=== PATIENT | male | born 1960 | race Caucasian/White ===

== ENCOUNTER 2017-10-31 16:35 | Emergency (ER) | payer SELFPAY ==
[2017-10-31 16:47] VITALS: BP 132/72; PULSE 73; RESP 18; TEMP 98.7; O2SAT 99
--- NOTE | 2017-10-31 17:33 | C.PDOC ---
History Of Present Illness 57 y/o male presents to the ED s/p fall with right hand injury. Patient reports he injured his right finger after falling 1 week ago. Denies any pain but reliazed the finger was drooping/flexing involuntarily. When he noticed it remained flexed in the resting position he became concerned prompting his visit to the ER. He reports when he flexes the finger he feels no pain. His only concern is the deformity. Has no current medical complaints. PMD: Adonis Mir Time Seen by Provider: 10/31/17 16:50 Chief Complaint (Nursing): Finger,Hand,&Wrist History Per: Patient History/Exam Limitations: no limitations Onset/Duration Of Symptoms: Days (1 week) Current Symptoms Are (Timing): Still Present Recent travel outside of the [place]: No Past Medical History Reviewed: Historical Data, Nursing Documentation, Vital Signs Vital Signs: Last Vital Signs Temp 98.7 F 10/31/17 16:44 Pulse 73 10/31/17 16:44 Resp 18 10/31/17 16:44 BP 132/72 10/31/17 16:44 Pulse Ox 99 10/31/17 18:44 - Medical History PMH: Hypothyroidism Surgical History: No Surg Hx Family History: States: No Known Family Hx - Social History Hx Tobacco Use: No Hx Alcohol Use: Yes Hx Substance Use: No - Immunization History Hx Tetanus Toxoid Vaccination: Yes Hx Influenza Vaccination: No Hx Pneumococcal Vaccination: No Review Of Systems Except As Marked, All Systems Reviewed And Found Negative. Constitutional: Negative for: Other (unremarkable has no complaints) Musculoskeletal: Positive for: Hand Pain (deformity of the 4th finger of the right hand) Physical Exam - Physical Exam Appears: Non-toxic, No Acute Distress Skin: Normal Color, Warm, Dry Head: Atraumatic Eye(s): bilateral: Normal Inspection, PERRL, EOMI Extremity: Other (4th finger of the right hand is flexed in the resting position ) Neurological/Psych: Oriented x3 ED Course And Treatment O2 Sat by Pulse Oximetry: 99 (RA) Pulse Ox Interpretation: Normal Medical Decision Making Medical Decision Making: Time: 16:44 Plan: Finger deformity Plan: * Right hand X-ray Splinted patients finger in a dorsal splint to keep finger extended and referred to a hand specialist. Scribe Attestation: Documented by Lebron Oliveira acting as a scribe Baron Kaur MD. MD Jarvis Attestation: All medical record entries made by the Scribe were at my direction and personally dictated by me. I have reviewed the chart and agree that the record accurately reflects my personal performance of the history, physical exam, medical decision making, and the department course for this patient. I have also personally directed, reviewed, and agree with the discharge instructions and disposition. Disposition Counseled Patient/Family Regarding: Studies Performed, Diagnosis, Need For Followup - Disposition Referrals: Jaylan Low MD [Staff Provider] - Disposition: HOME/ ROUTINE Disposition Time: 17:32 Condition: STABLE Instructions: Rafi Mo (DC) Forms: [facility] (Faroese), Gen Discharge Inst [place] - Clinical Impression Clinical Impression: Flori mo Decision To Admit - . Patient Diagnosis: Mallet finger
--- NOTE | 2017-11-01 09:56 | RAD ---
PROCEDURE: Right ring finger radiographs. HISTORY: fall one week ago COMPARISON: None. TECHNIQUE: AP radiograph of the right hand, as well as spot oblique and lateral images of ring finger were obtained. FINDINGS: RIGHT RING FINGER: Normal right ring finger, without acute fracture or focal lesion. Remainder of the right hand (as seen on the AP view) grossly unremarkable. JOINTS: Normal. SOFT TISSUES: Normal. OTHER FINDINGS: None. IMPRESSION: No acute fracture or dislocation.
== END 2017-10-31 17:41 | disposition home or self-care (01) ==
LOC: C.ER 16:35
DX: M20.011 Mallet finger of right finger(s) (principal); E03.9 Hypothyroidism, unspecified

== ENCOUNTER 2018-04-24 16:44 | Inpatient (IN) | payer SELFPAY ==
--- NOTE | 2018-04-24 17:36 | C.PDOC ---
History Of Present Illness 57 y/o male presents to ED c/o right arm paresthesia and numbness to right side of face and body since 8:00pm since last night. Denies fever or any other complaints at this time. Time Seen by Provider: 04/24/18 17:24 Chief Complaint (Nursing): Weakness/Neurological Deficit History Per: Patient History/Exam Limitations: no limitations Past Medical History Reviewed: Historical Data, Nursing Documentation, Vital Signs Vital Signs: Last Vital Signs Temp 98 F 04/24/18 17:01 Pulse 67 04/24/18 17:01 Resp 18 04/24/18 17:01 BP 139/85 04/24/18 17:01 Pulse Ox 99 04/24/18 17:01 - Medical History PMH: HTN, Hypothyroidism Family History: States: Unknown Family Hx - Social History Hx Tobacco Use: No Hx Alcohol Use: Yes Hx Substance Use: No - Immunization History Hx Tetanus Toxoid Vaccination: Yes Hx Influenza Vaccination: No Hx Pneumococcal Vaccination: No Review Of Systems Except As Marked, All Systems Reviewed And Found Negative. Constitutional: Negative for: Fever, Chills Cardiovascular: Negative for: Chest Pain Respiratory: Negative for: Shortness of Breath Neurological: Positive for: Numbness (right side of face and body). Negative for: Change in Speech, Confusion, Headache, Dizziness Physical Exam - Physical Exam Appears: Non-toxic, No Acute Distress Skin: Normal Color, Warm, Dry Head: Atraumatic, Normacephalic Eye(s): bilateral: Normal Inspection Oral Mucosa: Moist Neck: Normal ROM, Supple Chest: Symmetrical Cardiovascular: Rhythm Regular, No Murmur Respiratory: Normal Breath Sounds, No Rales, No Rhonchi, No Wheezing Gastrointestinal/Abdominal: Soft, No Tenderness Extremity: Normal ROM, No Pedal Edema, Capillary Refill (less than 2 seconds), No Deformity, No Swelling Extremity: Bilateral: Atraumatic, Normal Color And Temperature Pulses: Right Radial: Normal Neurological/Psych: Oriented x3, Normal Speech, Normal Cognition, Normal Motor, Normal Sensation ED Course And Treatment - Laboratory Results Result Diagrams: 04/29/18 07:09 04/29/18 07:09 O2 Sat by Pulse Oximetry: 99 Pulse Ox Interpretation: Normal NIHSS Stroke Scale 2 - Date/Time Evaluation Performed Date Performed: 04/25/18 Time Performed: 16:00 - How Severe is the Stroke Level of Consciousness: 0=Alert LOC to Questions: 0=Both comments correct LOC to commands: 0=Obeys both correctly Best Gaze: 0=Normal Visual: 0=No visual loss Facial: 0=Normal Motor Arm - Left: 0=No drift Motor Arm - Right: 0=No drift Motor Leg - Left: 0=No drift Motor Leg - Right: 0=No drift Limb Ataxia: 0=Absent Sensory: 1=Mild to moderate loss Best Language: 0=No aphasia Dysarthia: 0=Normal articulation Extinction & Inattention (Neglect): 0=Normal, no object Score: 1 rTPA Inclusion/Exclusion - Refusal of Treatment Patient Refused Treatment: Yes - Inclusion Criteria for Altepase Patient is 18 years or Older: No The Clinical Diagnosis of Ischemic Stroke That is Causing a Potentially Disabling Neurological Deficit: No Time of Onset is Well Established to be Less Than 270 Minute Before Treatment Would Begin: No Risk/Benefit Discussed With Patient/Family Member Present: Yes Medical Decision Making Medical Decision Making: r/o cva vs cervical radiculopathy Plan: Blood work Head CT CXR EKG IV fluids labs neg. pt seen by dr bishop in [place]. ct shows ?neurocystercosis. dr bishop recommends mri and admission accpeted by hospitalist. Disposition - Disposition Disposition: HOSPITALIZED Disposition Time: 05:00 Condition: STABLE - Clinical Impression Clinical Impression: Numbness, Brain parenchymal calcification - Scribe Statement The provider has reviewed the documentation as recorded by the Scribe KP All medical record entries made by the Scribe were at my direction and personally dictated by me. I have reviewed the chart and agree that the record accurately reflects my personal performance of the history, physical exam, medical decision making, and the department course for this patient. I have also personally directed, reviewed, and agree with the discharge instructions and disposition. Decision To Admit - Pt Status Changed To: Hospital Disposition Of: Inpatient - Admit Certification Admit to Inpatient:: After my assessment, the patient will require hospitalization for at least two midnights. This is because of the severity of symptoms shown, intensity of services needed, and/or the medical risk in this patient being treated as an outpatient. - InPatient: Physician Admission Certification: I certify that this patient requires 2 or more midnights of care for the following reason:: ro cva vs infection - . Bed Request Type: Telemetry Admitting Physician: [place] Patient Diagnosis: Numbness, Brain parenchymal calcification
[2018-04-24 18:35] LABS: BASO # 0.1 K/uL (0.0-0.2); BASO % 0.7 % (0.0-2.0); EOS # 0.5 K/uL (0.0-0.7); EOS % 5.3 % (0.0-4.0); HEMOGLOBIN 14.6 g/dL (12.0-18.0); LYMPH # 2.2 K/uL (1.0-4.3); LYMPH % 23.8 % (20.0-40.0); MEAN CELL VOLUME 82.8 fL (80.0-94.0); MEAN CORPUSCULAR HEMOGLOBIN 27.9 pg (27.0-31.0); MEAN CORPUSCULAR HGB CONC 33.7 g/dL (33.0-37.0); MEAN PLATELET VOLUME 9.6 fL (7.2-11.7); MONO # 0.4 K/uL (0.0-0.8); MONO % 4.2 % (0.0-10.0); NEUT # 6.1 K/uL (1.8-7.0); NRBC % 0.1 % (0.0-2.0); RBC 5.23 Mil/uL (4.40-5.90); WHITE BLOOD COUNT 9.3 K/uL (4.8-10.8)
[2018-04-24 18:44] LABS: INR 1.1; PROTHROMBIN TIME 11.9 SECONDS (9.7-12.2)
[2018-04-24 18:48] LABS: ALB/GLOB RATIO 1.3 (1.0-2.1); ALBUMIN 4.2 g/dL (3.5-5.0); ALT/SGPT 24 U/L (21-72); AST/SGOT 27 U/L (17-59); BLOOD UREA NITROGEN 19 mg/dL (9-20); CALCIUM 9.2 mg/dl (8.6-10.4); GFR NON-AFRICAN AMERICAN > 60; HDL CHOLESTEROL 69 mg/dL (30-70)
[2018-04-24 18:59] LABS: LDL CHOLESTEROL 104 mg/dL (0-129)
--- NOTE | 2018-04-24 19:10 | CP.PCM.CON ---
History of Present Illness - History of Present Illness History of Present Illness: Neurology Consultation Note: Mr. Kemal Barragan is a 57-year-old man with a past medical history of thyroid goiter, referred to me by Dr. Sanabria, who presented to the ED after he started experiencing right face and arm numbness and some slight difference in strength that started yesterday. On exam, he did complain of subjective sensory changes, but there were no other focal neurological deficits. Non-contrast CT scan of the head was done and showed multiple calcifications in the frontal lobes, temporal lobes and occipital lobes bilaterally. Review of Systems - Constitutional Constitutional: As Per HPI - EENT Eyes: absent: As Per HPI, Blind Spots, Blurred Vision, Change in Vision, Decreased Night Vision, Diplopia, Discharge, Dry Eye, Exophthalmos, Floaters, Irritation, Itchy Eyes, Loss of Peripheral Vision, Pain, Photophobia, Requires Corrective Lenses, Sees Flashes, Spots in Vision, Tunnel Vision, Other Visual Disturbances, Loss of Vision, Other Ears: absent: As Per HPI, Decreased Hearing, Ear Discharge, Ear Pain, Tinnitus, Abnormal Hearing, Disequilibrium, Dizziness, Other Nose/Mouth/Throat: absent: As Per HPI, Epistaxis, Nasal Congestion, Nasal Discharge, Nasal Obstruction, Nasal Trauma, Nose Pain, Post Nasal Drip, Sinus Pain, Sinus Pressure, Bleeding Gums, Change in Voice, Dental Pain, Dry Mouth, Dysphagia, Halitosis, Hoarsness, Lip Swelling, Mouth Lesions, Mouth Pain, Odynophagia, Sore Throat, Throat Swelling, Tongue Swelling, Facial Pain, Neck Pain, Neck Mass, Other - Cardiovascular Cardiovascular: absent: As Per HPI, Acrocyanosis, Chest Pain, Chest Pain at Rest, Chest Pain with Activity, Claudication, Diaphoresis, Dyspnea, Dyspnea on Exertion, Edema, Irregular Heart Rhythm, Pain Radiating to Arm/Neck/Jaw, Leg Edema, Leg Ulcers, Lightheadedness, Orthopnea, Palpitations, Paroxysmal Nocturnal Dyspnea, Pedal Edema, Radiating Pain, Rapid Heart Rate, Slow Heart Rate, Syncope, Other - Respiratory Respiratory: absent: As Per HPI, Cough, Dyspnea, Hemoptysis, Dyspnea on Exertion, Wheezing, Snoring, Stridor, Pain on Inspiration, Chest Congestion, Excessive Mucous Production, Change in Mucous Color, Pain with Coughing, Other - Gastrointestinal Gastrointestinal: absent: As Per HPI, Abdominal Pain, Belching, Bloating, Change in Bowel Habits, Change in Stool Character, Coffee Ground Emesis, Constipation, Cramping, Diarrhea, Dyspepsia, Dysphagia, Early Satiety, Excessive Flatus, Fecal Incontinence, Heartburn, Hematemesis, Hematochezia, Loose Stools, Melena, Nausea, Odynophagia, Temesmus, Vomiting, Other - Genitourinary Genitourinary: absent: As Per HPI, Change in Urinary Stream, Difficulty Urinating, Dysuria, Flank Pain, Hematuria, Pyuria, Nocturia, Urinary Incontinence, Urinary Frequency, Urinary Hesitance, Urinary Urgency, Voiding Freq/Small Amts, Freq UTI, Hx Renal/Bladder Calculi, Hx /Renal Surgery, Bladder Distension, Other - Musculoskeletal Musculoskeletal: absent: As Per HPI, Abnormal Gait, Arthralgias, Atrophy, Back Pain, Deformity, Joint Swelling, Limited Range of Motion, Loss of Height, Muscle Cramps, Muscle Weakness, Myalgias, Neck Pain, Numbness, Radiating Pain into Limb, Stiffness, Tingling, Other - Integumentary Integumentary: absent: As Per HPI, Acne, Alopecia, Bleeding Lesions, Change in Hair, Change in Nails, Change in Pigmentation, Changing Lesions, Dry Skin, Erythema, Furuncle, Hirsutism, Lesions, New Lesions, Non-Healing Lesions, Photosensitivity, Pruritus, Rash, Skin Pain, Skin Ulcer, Sores, Striae, Swelling, Unusual Bruising, Wounds, Jaundice, Other - Neurological Neurological: As Per HPI - Psychiatric Psychiatric: absent: As Per HPI, Abnormal Sleep Pattern, Anhedonia, Anxiety, Auditory Hallucinations, Behavioral Changes, Change in Appetite, Change in Libido, Confusion, Depression, Difficulty Concentrating, Hallucinations, Homicidal Ideation, Hopelessness, Irritability, Memory Loss, Mood Swings, Panic Attacks, Paranoia, Suicidal Ideation, Visual Hallucinations, Tactile Hallucina tions, Other - Endocrine Endocrine: absent: As Per HPI, Change in Body Appearance, Change in Libido, Cold Intolorance, Deepening of Voice, Excessive Sweating, Fatigue, Flushing, Heat Intolorance, Increase in Ring/Shoe/Hat Size, Palpitations, Polydipsia, Polypha gabriele, Polyuria, Other - Hematologic/Lymphatic Hematologic: absent: As Per HPI, Easy Bleeding, Easy Bruising, Lymphadenopathy, Other Past Patient History - Past Social History Smoking Status: Current Some Days Smoker - CARDIAC Hx Hypertension: Yes - ENDOCRINE/METABOLIC Hx Hypothyroidism: Yes - PSYCHIATRIC Hx Substance Use: No - SURGICAL HISTORY Hx Surgeries: No - ANESTHESIA Hx Anesthesia: No Meds Allergies/Adverse Reactions: Allergies Allergy/AdvReac Type Severity Reaction Status Date / Time No Known Allergies Allergy Verified 04/24/18 17:05 - Medications Medications: Current Medications Sodium Chloride (Sodium Chloride 0.9%) 1,000 mls @ 100 mls/hr IV .Q10H KELVIN Physical Exam - Constitutional Appears: Well - Head Exam Head Exam: ATRAUMATIC, NORMAL INSPECTION, NORMOCEPHALIC - Eye Exam Eye Exam: EOMI, Normal appearance, PERRL Pupil Exam: NORMAL ACCOMODATION, PERRL - ENT Exam ENT Exam: Mucous Membranes Moist, Normal Exam - Neck Exam Neck exam: Positive for: Normal Inspection - Respiratory Exam Respiratory Exam: Clear to Auscultation Bilateral, NORMAL BREATHING PATTERN - Cardiovascular Exam Cardiovascular Exam: REGULAR RHYTHM, +S1, +S2 - GI/Abdominal Exam GI & Abdominal Exam: Normal Bowel Sounds, Soft. absent: Tenderness - Rectal Exam Rectal Exam: Deferred - Extremities Exam Extremities exam: Positive for: normal inspection - Back Exam Back exam: NORMAL INSPECTION - Neurological Exam Neurological exam: Alert, CN II-XII Intact, Normal Gait, Oriented x3, Reflexes Normal Additional comments: Slight right face and arm numbness as compared with the left. NIHSS = 1 - Psychiatric Exam Psychiatric exam: Normal Affect, Normal Mood - Skin Skin Exam: Dry, Intact, Normal Color, Warm Results - Vital Signs Recent Vital Signs: Last Vital Signs Temp 98 F 04/24/18 17:01 Pulse 67 04/24/18 17:01 Resp 18 04/24/18 17:01 BP 139/85 04/24/18 17:01 Pulse Ox 99 04/24/18 17:37 - Labs Result Diagrams: 04/24/18 18:24 04/24/18 18:24 Labs: Laboratory Results - last 24 hr 04/24/18 04/24/18 04/24/18 18:24 18:24 18:24 WBC 9.3 RBC 5.23 Hgb 14.6 Hct 43.3 MCV 82.8 MCH 27.9 MCHC 33.7 RDW 14.0 Plt Count 206 MPV 9.6 Neut % (Auto) 66.0 Lymph % (Auto) 23.8 Lassen % (Auto) 4.2 Eos % (Auto) 5.3 H Baso % (Auto) 0.7 Neut # (Auto) 6.1 Lymph # (Auto) 2.2 Lassen # (Auto) 0.4 Eos # (Auto) 0.5 Baso # (Auto) 0.1 PT 11.9 INR 1.1 APTT 30 Sodium 138 Potassium 4.3 Chloride 102 Carbon Dioxide 25 Anion Gap 15 BUN 19 Creatinine 0.8 Est GFR ( Amer) > 60 Est GFR (Non-Af Amer) > 60 Random Glucose 105 Hemoglobin A1c Calcium 9.2 Total Bilirubin 0.8 AST 27 ALT 24 Alkaline Phosphatase 63 Troponin I < 0.0120 Total Protein 7.4 Albumin 4.2 Globulin 3.3 Albumin/Globulin Ratio 1.3 Triglycerides 77 Cholesterol 188 LDL Cholesterol Direct 104 HDL Cholesterol 69 Blood Type 04/24/18 04/24/18 18:24 18:24 WBC RBC Hgb Hct MCV MCH MCHC RDW Plt Count MPV Neut % (Auto) Lymph % (Auto) Lassen % (Auto) Eos % (Auto) Baso % (Auto) Neut # (Auto) Lymph # (Auto) Lassen # (Auto) Eos # (Auto) Baso # (Auto) PT INR APTT Sodium Potassium Chloride Carbon Dioxide Anion Gap BUN Creatinine Est GFR ( Amer) Est GFR (Non-Af Amer) Random Glucose Hemoglobin A1c 5.4 Calcium Total Bilirubin AST ALT Alkaline Phosphatase Troponin I Total Protein Albumin Globulin Albumin/Globulin Ratio Triglycerides Cholesterol LDL Cholesterol Direct HDL Cholesterol Blood Type O POSITIVE Assessment & Plan - Assessment and Plan (Free Text) Assessment: The patient's symptoms of right face and arm numbness could be caused by the lesions in his brain. Considering the fact that the patient is from [place], one of the differentials is that these lesions may be neurocysticircosis. An MRI of the brain with and without contrast will be ne eded for further identification. I also recommend an EEG to ensure that the numbness is not due to focal seizures. This does not appear to be consistent with a stroke, but the MRI will help to rule that out. Aspirin 81 mg now is recommended. Thank you for this consultation.
[2018-04-24] MEDS: Sodium Chloride 0.9% 1,000 ML IV SCH (19:25)
--- NOTE | 2018-04-25 00:31 | CP.PCM.HP ---
<Daniela Ashley Y - Last Filed: 04/24/18 23:53> History of Present Illness - History of Present Illness History of Present Illness: cc: "numbness in my right arm" Mr. Kemal Barragan is a 57 year old [place] male PMH hypothyroidism, hypertension comes in today for ascending numbness and loss of sensation in his right arm. He first noticed numbness in his right hand at 8pm last night. Over the next few hours, it ascended up his arm, over his shoulder, behind his ear, ending at the crown of his head. He went to sleep as usual at midnight and slept normally. He woke up as normal at 7 in the morning, and noticed that the numbness had not gone away. 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 During work, he could feel the temperature of the water, but over time, noticed he was progressively less able to feel the weight and shape of the dishes. At no time did he feel a motor deficit nor was at risk of dropping the dishes. He immediately came to the hospital after finishing work. Currently, he cannot feel when others touch his right hand or forearm, but feels electric shocks when he touches it himself with his left. The numbness has not changed since he woke up this morning. He does admit to dry mouth with a bitter taste, but attributes that to no eating anything since this morning's breakfast. He last saw his PMD, Dr. Lamb, 3 months ago when he broke out in hives on his back. He was given an unknown medication and does not know the results of his allergy panel. His is also constantly sick, last sick 3 weeks ago with an URI. Denies fever, chills, blurry vision, double vision, headache, weakness, fatigue, chest pain, shortness of breath, nausea, vomiting, constipation, diarrhea. PMD: Dr. Javad Lamb PMH: hypothyroidism, hypertension Med: unknown thyroid medication All: NKDA PSxHx: denies FamHx: thyroid disorders on both sides SocHx: 2-3 cigs/day, social EtOH, denies illicit drug use. Lives in a house and 3 kids. 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 Proxy: Deborah [phone] Full Code Present on Admission - Present on Admission Any Indicators Present on Admission: No Review of Systems - Constitutional Constitutional: Headache. absent: Anorexia, Chills, Excessive Sweating, Fatigue, Fever, Malaise, Weakness - EENT Eyes: absent: Blind Spots, Blurred Vision, Diplopia, Pain, Photophobia, Sees Flashes, Loss of Vision Ears: absent: Decreased Hearing, Tinnitus, Dizziness Nose/Mouth/Throat: Dry Mouth, Neck Mass. absent: Epistaxis, Nasal Discharge, Dysphagia, Odynophagia, Sore Throat - Cardiovascular Cardiovascular: absent: Chest Pain, Chest Pain with Activity, Dyspnea, Dyspnea on Exertion, Edema, Irregular Heart Rhythm, Palpitations, Pedal Edema, Radiating Pain, Syncope - Respiratory Respiratory: absent: Cough, Dyspnea, Dyspnea on Exertion, Wheezing, Chest Congestion - Gastrointestinal Gastrointestinal: absent: Abdominal Pain, Belching, Bloating, Change in Bowel Habits, Diarrhea, Dyspepsia, Dysphagia, Heartburn, Nausea, Odynophagia, Vomiting - Genitourinary Genitourinary: absent: Difficulty Urinating, Dysuria, Urinary Incontinence, Urinary Hesitance, Urinary Urgency, Bladder Distension - Musculoskeletal Musculoskeletal: Back Pain, Neck Pain, Numbness, Stiffness. absent: Abnormal Gait, Arthralgias, Muscle Cramps, Muscle Weakness, Tingling - Integumentary Integumentary: absent: Bleeding Lesions, Dry Skin, Lesions, Rash, Swelling, Unusual Bruising - Neurological Neurological: Numbness, Paresthesias, Radicular Pain, Sensory Deficit. absent: Abnormal Gait, Abnormal Hearing, Abnormal Movements, Abnormal Speech, Burning Sensations, Confusion, Dizziness, Focal Weakness, Headaches, Lack of Coordination, Loss of Vision, Memory Loss, Restless Legs, Syncope, Tingling, Tremor, Weakness - Psychiatric Psychiatric: absent: Abnormal Sleep Pattern, Anxiety, Change in Appetite, Depression, Panic Attacks - Endocrine Endocrine: absent: Fatigue, Palpitations - Hematologic/Lymphatic Hematologic: absent: Easy Bleeding, Easy Bruising Past Patient History - Past Medical History & Family History Pertinent Family History: thyroid disorders on both sides of the family - Past Social History Smoking Status: Light Smoker < 10 Cigarettes Daily Alcohol: Social Drugs: Denies - CARDIAC Hx Hypertension: Yes - ENDOCRINE/METABOLIC Hx Hypothyroidism: Yes - PSYCHIATRIC Hx Substance Use: No - SURGICAL HISTORY Hx Surgeries: No - ANESTHESIA Hx Anesthesia: No Meds Allergies/Adverse Reactions: Allergies Allergy/AdvReac Type Severity Reaction Status Date / Time No Known Allergies Allergy Verified 04/24/18 17:05 Physical Exam - Constitutional Appears: Well, Non-toxic, No Acute Distress - Head Exam Head Exam: ATRAUMATIC, NORMOCEPHALIC - Eye Exam Eye Exam: EOMI, Normal appearance, PERRL. absent: Conjunctival injection, Periorbital swelling, Periorbital tenderness, Scleral icterus Pupil Exam: NORMAL ACCOMODATION - ENT Exam ENT Exam: Mucous Membranes Dry - Neck Exam Neck exam: Positive for: Thyromegaly. Negative for: Lymphadenopathy, Tenderness - Respiratory Exam Respiratory Exam: Clear to Auscultation Bilateral, NORMAL BREATHING PATTERN. absent: Rales, Rhonchi, Wheezes - Cardiovascular Exam Cardiovascular Exam: REGULAR RHYTHM, +S1, +S2. absent: Gallop, Rubs, Systolic Murmur - GI/Abdominal Exam GI & Abdominal Exam: Normal Bowel Sounds, Soft. absent: Distended, Firm, Guarding, Tenderness - Extremities Exam Extremities exam: Positive for: normal capillary refill, pedal pulses present. Negative for: calf tenderness, pedal edema Additional comments: IV access in L arm peripheral pulses palpable bilaterally (radial, ulnar, PT) - Back Exam Back exam: absent: CVA tenderness (L), CVA tenderness (R), paraspinal tenderness, vertebral tenderness - Neurological Exam Neurological exam: Alert, CN II-XII Intact, Motor Sensory Deficit, Normal Gait, Oriented x3, Reflexes Normal - Expanded Neurological Exam Expanded Patient oriented to: person, place, time Speech: Fluid Speech Cranial nerves: EOM's Intact: Normal, Facial Sensation: Abnormal Right (decreased sensation over forehead, cheek, and mandible compared to L), Tongue Deviation: Normal Cerebellar Function: Finger to Nose: Normal, Heel to [place]: Normal Upper motor neuron: Pronator Drift: Normal Sensory exam: Lower Extremity Light Touch: Normal, Lower Extremity Pin Prick: Normal, Upper Extremity Light Touch: Abnormal Right (decreased sensation over R arm. no sensation on both sides of hand), Upper Extremity Pin Prick: Abnormal Right Neuro motor strength exam: Left Upper Extremity: 5, Right Upper Extremity: 5, Left Lower Extremity: 5, Right Lower Extremity: 5 DTR: Bicep Left: 2+, Bicep Right: 2+, Brachioradialis Left: 2+, Brachioradialis Right: 2+, Patellar Left: 2+, Patellar Right: 2+, Tricep Left: 2+, Tricep Right: 2+ Coma Scale Eye Opening: SPONTANEOUS Coma Scale Motor Response: OBEYS COMMANDS - Psychiatric Exam Psychiatric exam: Normal Affect, Normal Mood - Skin Skin Exam: Dry, Normal Color, Warm Results - Vital Signs Recent Vital Signs: Last Vital Signs Temp 98 F 04/24/18 22:03 Pulse 55 L 04/24/18 22:03 Resp 13 04/24/18 22:03 BP 139/91 H 04/24/18 22:03 Pulse Ox 98 04/24/18 22:03 - Labs Result Diagrams: 04/24/18 18:24 04/24/18 18:24 Labs: Laboratory Results - last 24 hr 04/24/18 04/24/18 04/24/18 18:24 18:24 18:24 WBC 9.3 RBC 5.23 Hgb 14.6 Hct 43.3 MCV 82.8 MCH 27.9 MCHC 33.7 RDW 14.0 Plt Count 206 MPV 9.6 Neut % (Auto) 66.0 Lymph % (Auto) 23.8 [place] % (Auto) 4.2 Eos % (Auto) 5.3 H Baso % (Auto) 0.7 Neut # (Auto) 6.1 Lymph # (Auto) 2.2 [place] # (Auto) 0.4 Eos # (Auto) 0.5 Baso # (Auto) 0.1 PT 11.9 INR 1.1 APTT 30 Sodium 138 Potassium 4.3 Chloride 102 Carbon Dioxide 25 Anion Gap 15 BUN 19 Creatinine 0.8 Est GFR ( Amer) > 60 Est GFR (Non-Af Amer) > 60 Random Glucose 105 Hemoglobin A1c Calcium 9.2 Total Bilirubin 0.8 AST 27 ALT 24 Alkaline Phosphatase 63 Troponin I < 0.0120 Total Protein 7.4 Albumin 4.2 Globulin 3.3 Albumin/Globulin Ratio 1.3 Triglycerides 77 Cholesterol 188 LDL Cholesterol Direct 104 HDL Cholesterol 69 Blood Type Antibody Screen 04/24/18 04/24/18 18:24 18:24 WBC RBC Hgb Hct MCV MCH MCHC RDW Plt Count MPV Neut % (Auto) Lymph % (Auto) [place] % (Auto) Eos % (Auto) Baso % (Auto) Neut # (Auto) Lymph # (Auto) [place] # (Auto) Eos # (Auto) Baso # (Auto) PT INR APTT Sodium Potassium Chloride Carbon Dioxide Anion Gap BUN Creatinine Est GFR ( Amer) Est GFR (Non-Af Amer) Random Glucose Hemoglobin A1c 5.4 Calcium Total Bilirubin AST ALT Alkaline Phosphatase Troponin I Total Protein Albumin Globulin Albumin/Globulin Ratio Triglycerides Cholesterol LDL Cholesterol Direct HDL Cholesterol Blood Type O POSITIVE Antibody Screen Negative Assessment & Plan - Assessment and Plan (Free Text) Assessment: 57yo [place] M PMH hypothyroidism, HTN admitted for R arm numbness ascending up his neck, wrapping behind his ear, to his crown. Plan: Mononeuritis Multiplex - CXR (04/24): pending read - Head CT (04/24): pending read. Prelim: multiple scattered round calcifications within both cerebral hemispheres. All calcifications are less than 4mm in diame ter without edema. - Hgb A1c 5.4, Trop neg - Lipid panel: TG 77 Chol 188 LD 104 HDL 69 - f/u MRI Brain - f/u EEG - ASA 81mg po daily - NS @100 - Neuro consulted: Dr. Dominique edwards appreciated Hypothyroidism - has been controlled with medication - patient does not know the name or dosing of his medication. - chart review shows he has hypothyroidism and took Synthroid 50mcg daily at the beginning of 2015 - will give [facility] [phone] call once open at 10am to confirm name and dosing - f/u TSH, free T4 Hypertension - controlled via diet and lifestyle - monitor vitals PPx - DVT: Lovenox 40mg sc daily, SCDs - GI: not indicated at this time - Diet: HHD 2g Na d/w Dr. Liv Ashley PGY-1 - Date & Time Date: 04/24/18 Time: 21:00 <[place] - Last Filed: 04/25/18 06:26> Results - Vital Signs Recent Vital Signs: Last Vital Signs Temp 97.7 F 04/25/18 06:09 Pulse 55 L 04/25/18 06:09 Resp 14 04/25/18 06:09 BP 122/65 04/25/18 06:09 Pulse Ox 97 04/25/18 06:09 - Labs Result Diagrams: 04/25/18 06:12 04/24/18 18:24 Labs: Laboratory Results - last 24 hr 04/24/18 04/24/18 04/24/18 18:24 18:24 18:24 WBC 9.3 RBC 5.23 Hgb 14.6 Hct 43.3 MCV 82.8 MCH 27.9 MCHC 33.7 RDW 14.0 Plt Count 206 MPV 9.6 Neut % (Auto) 66.0 Lymph % (Auto) 23.8 [place] % (Auto) 4.2 Eos % (Auto) 5.3 H Baso % (Auto) 0.7 Neut # (Auto) 6.1 Lymph # (Auto) 2.2 [place] # (Auto) 0.4 Eos # (Auto) 0.5 Baso # (Auto) 0.1 PT 11.9 INR 1.1 APTT 30 Sodium 138 Potassium 4.3 Chloride 102 Carbon Dioxide 25 Anion Gap 15 BUN 19 Creatinine 0.8 Est GFR ( Amer) > 60 Est GFR (Non-Af Amer) > 60 Random Glucose 105 Hemoglobin A1c Calcium 9.2 Total Bilirubin 0.8 AST 27 ALT 24 Alkaline Phosphatase 63 Troponin I < 0.0120 Total Protein 7.4 Albumin 4.2 Globulin 3.3 Albumin/Globulin Ratio 1.3 Triglycerides 77 Cholesterol 188 LDL Cholesterol Direct 104 HDL Cholesterol 69 Blood Type Antibody Screen 04/24/18 04/24/18 04/25/18 18:24 18:24 06:12 WBC 9.0 RBC 4.98 Hgb 14.0 Hct 41.3 MCV 82.9 MCH 28.2 MCHC 34.0 RDW 14.1 Plt Count 203 MPV 9.5 Neut % (Auto) 52.2 Lymph % (Auto) 28.8 [place] % (Auto) 5.2 Eos % (Auto) 13.2 H Baso % (Auto) 0.6 Neut # (Auto) 4.7 Lymph # (Auto) 2.6 [place] # (Auto) 0.5 Eos # (Auto) 1.2 H Baso # (Auto) 0.1 PT INR APTT Sodium Potassium Chloride Carbon Dioxide Anion Gap BUN Creatinine Est GFR ( Amer) Est GFR (Non-Af Amer) Random Glucose Hemoglobin A1c 5.4 Calcium Total Bilirubin AST ALT Alkaline Phosphatase Troponin I Total Protein Albumin Globulin Albumin/Globulin Ratio Triglycerides Cholesterol LDL Cholesterol Direct HDL Cholesterol Blood Type O POSITIVE Antibody Screen Negative Assessment & Plan - Date & Time Date: 04/25/18 (I have seen and examined the patient. I agree with the findings and plan of care as documented by Dr. Ashley. 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 Consult to Dr. Fox. MRI brain. EEG. Hypothroidism history. Contact patient's PMD for exact medication and dosage. History of hypertension. Exact dosages unknown. Will contact PMD and restart. Monitor for acute changes.) Time: 06:24 Attending/Attestation - Attestation I have personally seen and examined this patient.: Yes I have fully participated in the care of the patient.: Yes I have reviewed all pertinent clinical information: Yes
[2018-04-25] MEDS: Sodium Chloride 0.9% 1,000 ML IV SCH ×2 (05:01→16:52)
[2018-04-25 06:16] LABS: BASO # 0.1 K/uL (0.0-0.2); BASO % 0.6 % (0.0-2.0); EOS # 1.2 K/uL (0.0-0.7); EOS % 13.2 % (0.0-4.0); LYMPH # 2.6 K/uL (1.0-4.3); LYMPH % 28.8 % (20.0-40.0); MEAN CELL VOLUME 82.9 fL (80.0-94.0); MEAN CORPUSCULAR HEMOGLOBIN 28.2 pg (27.0-31.0); MEAN PLATELET VOLUME 9.5 fL (7.2-11.7); MONO # 0.5 K/uL (0.0-0.8); MONO % 5.2 % (0.0-10.0); NEUT # 4.7 K/uL (1.8-7.0); NEUT % 52.2 % (50.0-75.0); NRBC % 0.1 % (0.0-2.0); RBC 4.98 Mil/uL (4.40-5.90); RED CELL DISTRIBUTION WIDTH 14.1 % (11.5-14.5)
[2018-04-25 06:35] LABS: ALB/GLOB RATIO 1.1 (1.0-2.1); ALBUMIN 3.5 g/dL (3.5-5.0); ALT/SGPT 20 U/L (21-72); AST/SGOT 25 U/L (17-59); BLOOD UREA NITROGEN 16 mg/dL (9-20); CALCIUM 8.5 mg/dl (8.6-10.4); GFR NON-AFRICAN AMERICAN > 60
--- NOTE | 2018-04-25 08:47 | CT ---
Date of service: 04/24/2018 PROCEDURE: CT HEAD WITHOUT CONTRAST. HISTORY: right side numbness COMPARISON: None available. TECHNIQUE: Axial computed tomography images were obtained through the head/brain without intravenous contrast. Radiation dose: Total exam DLP = 941.47 mGy-cm. This CT exam was performed using one or more of the following dose reduction techniques: Automated exposure control, adjustment of the mA and/or kV according to patient size, and/or use of iterative reconstruction technique. FINDINGS: HEMORRHAGE: No intracranial hemorrhage. BRAIN: No mass effect or edema. No atrophy or chronic white matter ischemic change. There are scattered small cortical calcifications in both cerebral hemispheres. This is a nonspecific finding but the possibility of neurocysticercosis as well as TORCH syndrome or toxoplasmosis must also be considered. No evidence of acute infarct. VENTRICLES: Unremarkable. No hydrocephalus. CALVARIUM: Unremarkable. PARANASAL SINUSES: Unremarkable as visualized. No significant inflammatory changes. MASTOID AIR CELLS: Unremarkable as visualized. No inflammatory changes. OTHER FINDINGS: None. IMPRESSION: Scattered small nodular cerebral cortical calcifications bilaterally. Differential diagnosis includes neurocysticercosis as well as additional infections as above. No other significant abnormality. The preliminary findings for this examination were reported by [facility] at 7:20 p.m. on 04/24/2018. There is concurrence of this report with the preliminary findings.
--- NOTE | 2018-04-25 09:27 | RAD ---
Date of service: 04/24/2018 HISTORY: Code Stroke COMPARISON: Comparison made with prior chest radiograph dated 01/14/2018.. FINDINGS: LUNGS: No active pulmonary disease. PLEURA: No significant pleural effusion identified, no pneumothorax apparent. CARDIOVASCULAR: No aortic atherosclerotic calcification present. Normal cardiac size. No pulmonary vascular congestion. OSSEOUS STRUCTURES: No significant abnormalities. VISUALIZED UPPER ABDOMEN: Normal. OTHER FINDINGS: None. IMPRESSION: No active disease.
[2018-04-25] MEDS ORDERED: Enoxaparin 40 mg Syringe SC SCH (10:00)
[2018-04-25] MEDS ORDERED: Gadodiamide 287 mg/ml 20 ml IV ONE (10:26)
--- NOTE | 2018-04-25 12:48 | MRI ---
Date of service: 04/25/2018 PROCEDURE: MRI of the brain. Multi planar/multipulse weighted sequences of the brain performed before and following intravenous injection of approximately 15 cc Omniscan contrast material.. HISTORY: Mononeuritis multiplex COMPARISON: None available. TECHNIQUE: Multiplanar, multisequence MR images of the brain were obtained with and without intravenous contrast enhancement. FINDINGS: HEMORRHAGE: None DWI: There is restricted diffusion involving what appears to represent the postcentral gyrus of. Findings are most consistent with an acute infarct. No other acute infarcts are identified. BRAIN PARENCHYMA: There are multiple tiny nonenhancing nonspecific focal areas of increased T2 signal scattered about the deep and subcortical white matter both cerebral hemispheres likely representing chronic sequela of small vessel disease. Additionally, there also appears to be some minimal chronic periventricular white matter ischemic changes.. Previously noted numerous small of round and elliptical shaped subarachnoid calcifications were seen scattered about the supratentorial compartment bilaterally, consistent with neurocysticercosis, are less well seen on this exam as compared to high-resolution CT scan brain. Please refer that study and corresponding report for additional details. ENHANCEMENT: No evidence of enhancing parenchymal nor extra-axial masses or collections. No evidence of unusual meningeal enhancement. VENTRICLES: No obstructive hydrocephalus. CRANIUM: Calvarium appears intact ORBITS: Visualized orbits and contents unremarkable. PARANASAL SINUSES/MASTOIDS: Clear VASCULAR SYSTEM: Visualized major vascular flow voids at skull base are patent. OTHER FINDINGS: None . IMPRESSION: There is a area of restricted diffusion left posterior superior parietal cortex consistent with an acute infarct. There are multiple tiny focal areas of increased T2 signal scattered about the deep and subcortical white matter both cerebral hemispheres consistent with tiny chronic lacunar type infarcts with minimal chronic periventricular white matter ischemic changes.. None of the changes exhibit restricted diffusion. Numerous some supra tentorial subarachnoid calcifications consistent with neurocysticercosis are less well seen on this study compared to high-resolution CT scan 04/24/2018. Note these findings were discussed with emergency room BYRON Marques at approximately 12:40 p.m. with written down
--- NOTE | 2018-04-25 14:31 | CP.PCM.PN ---
<JjbarrieGutierrez lynch - Last Filed: 04/25/18 16:36> Subjective - Date & Time of Evaluation Date of Evaluation: 04/25/18 Time of Evaluation: 14:29 - Subjective Subjective: Hospitalist Service Pt seen and examined at bedside. Pt feels as though the numbess has decreased in severity and now is localized to the dorsum of the hand and the pre auricular region. Pt tolerated foods, no trouble swallowing. Pt denies cp sob fc nv, excessive fatigue, loc. Objective - Vital Signs/Intake and Output Vital Signs (last 24 hours): Temp Pulse Resp BP Pulse Ox 98.5 F 63 18 120/68 98 04/25/18 11:15 04/25/18 11:15 04/25/18 11:15 04/25/18 11:15 04/25/18 11:15 - Medications Medications: Current Medications Aspirin (Aspirin Chewable) 81 mg PO DAILY [facility] Last Admin: 04/25/18 11:05 Dose: 81 mg Clopidogrel Bisulfate (Plavix) 75 mg PO DAILY [facility] Sodium Chloride (Sodium Chloride 0.9%) 1,000 mls @ 100 mls/hr IV .Q10H [facility] Last Admin: 04/25/18 05:01 Dose: 100 mls/hr Levothyroxine Sodium (Synthroid) 75 mcg PO DAILY@0630 [facility] Rosuvastatin Calcium (Crestor) 20 mg PO HS [facility] - Labs Labs: 04/25/18 06:12 04/25/18 06:12 PT 11.9 SECONDS (9.7-12.2) 04/24/18 18:24 INR 1.1 04/24/18 18:24 APTT 30 SECONDS (21-34) 04/24/18 18:24 - Additional Findings Additional findings: - Constitutional Appears: Well, No Acute Distress - Head Exam Head Exam: ATRAUMATIC, NORMOCEPHALIC - Eye Exam Eye Exam: EOMI, Normal appearance - ENT Exam ENT Exam: Mucous Membranes Moist - Respiratory Exam Respiratory Exam: NORMAL BREATHING PATTERN. absent: Accessory Muscle Use - Extremities Exam Extremities Exam: Normal Inspection - Neurological Exam Neurological Exam: Alert, Awake, CN II-XII Intact, Normal Gait, Oriented x3 Additional comments: Mild right face and right hand numbness compared to left side. - Psychiatric Exam Psychiatric exam: Normal Affect, Normal Mood - Skin Skin Exam: Dry, Normal Color, Warm Assessment and Plan - Assessment and Plan (Free Text) Assessment: 57yo Irish M PMH hypothyroidism, HTN admitted for R arm numbness ascending up his neck, wrapping behind his ear, to his crown. Plan: CVA L Parietal - CXR (04/24): pending read - Head CT (04/24): pending read. Prelim: multiple scattered round calcifications within both cerebral hemispheres. All calcifications are less than 4mm in diameter without edema. - MRI: L parietal stroke as read by Dr Hutchins Neurology - Hgb A1c 5.4, Trop neg - Lipid panel: TG 77 Chol 188 LD 104 HDL 69 - f/u EEG - ASA 81mg po daily - Plavix 75mg PO qd - Rosuvastatin - NS @100 - Neuro consulted: Dr. Fox - recshanta appreciated Neurocystercosis - MRI shows multiple lesions - ID Dr Woodall Consulted f/u recs - dexamethasone 1mg/kg qd - Albendazole 1125mg PO qd tmrw 1600 - Ativan 1mg q6 PRN for seizures Hypothyroidism - has been controlled with medication - patient does not know the name or dosing of his medication. - chart review shows he has hypothyroidism and took Synthroid 50mcg daily at the beginning of 2015 - will give [facility] [phone] call once open at 10am to confirm name and dosing - f/u TSH, free T4 Hypertension - controlled via diet and lifestyle - monitor vitals PPx - DVT: Lovenox 40mg sc daily, SCDs - GI: not indicated at this time - Diet: HHD 2g Na <Spencer Chavis - Last Filed: 04/29/18 22:49> Objective - Vital Signs/Intake and Output Vital Signs (last 24 hours): Temp Pulse Resp BP Pulse Ox 87.9 F L 74 20 129/65 100 04/29/18 15:00 04/29/18 15:00 04/29/18 15:00 04/29/18 15:00 04/29/18 15:00 - Labs Labs: 04/29/18 07:09 04/29/18 07:09 PT 11.9 SECONDS (9.7-12.2) 04/24/18 18:24 INR 1.1 04/24/18 18:24 APTT 30 SECONDS (21-34) 04/24/18 18:24 Attending/Attestation - Attestation I have personally seen and examined this patient.: Yes I have fully participated in the care of the patient.: Yes I have reviewed all pertinent clinical information, including history, physical exam and plan: Yes Notes (Text): 04/29/18 22:49 This is a late entry. Care of this patient was gone over in detail with resident Dr. Cordero. Spencer Chavis D.O.
--- NOTE | 2018-04-25 15:08 | CP.PCM.PN ---
<Nick Matos - Last Filed: 04/25/18 14:59> Subjective - Date & Time of Evaluation Date of Evaluation: 04/25/18 Time of Evaluation: 12:15 - Subjective Subjective: PGY2 Neuro Note for Dr. Guzman Patient seen and examined this morning at bedside. Patient is feeling that his sensation has improved and is now located in his right hand and right side of head. Patient has no other complaints at this time. Objective - Vital Signs/Intake and Output Vital Signs (last 24 hours): Temp Pulse Resp BP Pulse Ox 98.5 F 63 18 120/68 98 04/25/18 11:15 04/25/18 11:15 04/25/18 11:15 04/25/18 11:15 04/25/18 11:15 - Medications Medications: Current Medications Aspirin (Aspirin Chewable) 81 mg PO DAILY [facility] Last Admin: 04/25/18 11:05 Dose: 81 mg Clopidogrel Bisulfate (Plavix) 75 mg PO DAILY [facility] Sodium Chloride (Sodium Chloride 0.9%) 1,000 mls @ 100 mls/hr IV .Q10H [facility] Last Admin: 04/25/18 05:01 Dose: 100 mls/hr Levothyroxine Sodium (Synthroid) 75 mcg PO DAILY@0630 [facility] Rosuvastatin Calcium (Crestor) 20 mg PO HS [facility]IN - Labs Labs: 04/25/18 06:12 04/25/18 06:12 PT 11.9 SECONDS (9.7-12.2) 04/24/18 18:24 INR 1.1 04/24/18 18:24 APTT 30 SECONDS (21-34) 04/24/18 18:24 - Constitutional Appears: Well, No Acute Distress - Head Exam Head Exam: ATRAUMATIC, NORMOCEPHALIC - Eye Exam Eye Exam: EOMI, Normal appearance - ENT Exam ENT Exam: Mucous Membranes Moist - Respiratory Exam Respiratory Exam: NORMAL BREATHING PATTERN. absent: Accessory Muscle Use - Extremities Exam Extremities Exam: Normal Inspection - Neurological Exam Neurological Exam: Alert, Awake, CN II-XII Intact, Normal Gait, Oriented x3 Additional comments: Mild right face and right hand numbness compared to left side. - Psychiatric Exam Psychiatric exam: Normal Affect, Normal Mood - Skin Skin Exam: Dry, Normal Color, Warm Assessment and Plan (1) Stroke Assessment & Plan: Brain MRI 04/25/18: There is a area of restricted diffusion left posterior superior parietal cortex consistent with an acute infarct. There are multiple tiny focal areas of increased T2 signal scattered about the deep and subcortical white matter both cerebral hemispheres consistent with tiny chronic lacunar type infarcts with minimal chronic periventricular white matter ischemic changes.. None of the changes exhibit restricted diffusion. Numerous some supra tentorial subarachnoid calcifications consistent with neurocysticercosis are less well seen on this study compared to high-resolution CT scan 04/24/2018. 1. Telemetry. 2. Carotid ultrasounds bilaterally. 3. Check hemoglobin A-1 C, lipid panel, ESR, CRP, DINO, B12, folate, TSH, vitamin D levels. 4. Aspirin 81 mg daily 5. Statin for goal LDL less than 70. 6. Permissive hypertension, do not treat blood pressure less than 220/110 (may start to normalize 48-hours after symptom onset). Status: Acute (2) Neurocysticercosis Assessment & Plan: Head 04/24/18: Scattered small nodular cerebral cortical calcifications bilaterally. Differential diagnosis includes neurocysticercosis as well as additional infections as above. No other significant abnormality. Recommend ID consultation and treatment of Neurocysticerosis. Case discussed with Dr. Cuong Matos PGY2 Status: Acute <Cheyenne Guzman - Last Filed: 04/25/18 17:13> Objective - Vital Signs/Intake and Output Vital Signs (last 24 hours): Temp Pulse Resp BP Pulse Ox 98.5 F 63 18 120/68 98 04/25/18 11:15 04/25/18 11:15 04/25/18 11:15 04/25/18 11:15 04/25/18 11:15 - Medications Medications: Current Medications Albendazole (Albenza 200 Mg Tab) 1,125 mg PO DAILY [facility]; Protocol Aspirin (Aspirin Chewable) 81 mg PO DAILY [facility] Last Admin: 04/25/18 11:05 Dose: 81 mg Clopidogrel Bisulfate (Plavix) 75 mg PO DAILY [facility] Last Admin: 04/25/18 16:52 Dose: 75 mg Dexamethasone (Decadron Inj) 75 mg IV DAILY [facility] Sodium Chloride (Sodium Chloride 0.9%) 1,000 mls @ 100 mls/hr IV .Q10H [facility] Last Admin: 04/25/18 16:52 Dose: 100 mls/hr Levothyroxine Sodium (Synthroid) 75 mcg PO DAILY@0630 [facility] Lorazepam (Ativan) 1 mg IVP Q6H PRN PRN Reason: Seizure activity Rosuvastatin Calcium (Crestor) 20 mg PO HS KEL[facility]IN - Labs Labs: 04/25/18 06:12 04/25/18 06:12 PT 11.9 SECONDS (9.7-12.2) 04/24/18 18:24 INR 1.1 04/24/18 18:24 APTT 30 SECONDS (21-34) 04/24/18 18:24 Assessment and Plan - Assessment and Plan (Free Text) Assessment: Agree with residents assessment and plan. Mr Ugarte has NIHSS of about 5 with purely sensory findings in his right neck arm and V1-V2 region. MRI Brain shows acute infarct in left parietal region, in addition to multiple old, calcified cysticerci, Plan: 1. Stroke workup: aspirin, CTA head and neck, permissive htn, pt st ot, 2. ID consult for neurocysticercosis Thank you Dr. guzman
[2018-04-25] MEDS: Dexamethasone 4 mg/1 ml IVP SCH (19:04)
[2018-04-26] MEDS: Levothyroxine 75 MCG TAB PO SCH (06:19)
--- NOTE | 2018-04-26 06:28 | CARD ---
APPROVED REPORT Date of service: 04/25/2018 EXAM: Two-dimensional and M-mode echocardiogram with Doppler and color Doppler. Other Information Quality : TDSRhythm : INDICATION Acute Stroke 2D DIMENSIONS IVSd0.8 (0.7-1.1cm)LVDd4.9 (3.9-5.9cm) PWd0.8 (0.7-1.1cm)LA Ulvcnp92 (18-58mL) LVDs2.7 (2.5-4.0cm)FS (%) 43.7 % LVEF (%)74.8 (>50%)LVEF (Palu's)66.49 % M-Mode DIMENSIONS Left Atrium (MM)4.20 (2.5-4.0cm)IVSd0.90 (0.7-1.1cm) Aortic Root3.89 (2.2-3.7cm)LVDd5.74 (4.0-5.6cm) Aortic Cusp Exc.2.57 (1.5-2.0cm)PWd0.90 (0.7-1.1cm) FS (%) 38 %LVDs3.57 (2.0-3.8cm) LVEF (%)67 (>50%) Mitral Valve MV E Zrjimpkc56.3cm/sMV A Zsrbtfyi20.9cm/sE/A ratio0.9 TDI Lateral E' Peak V11.00cm/sMedial E' Peak V8.61cm/sE/Lateral E'5.9 E/Medial E'7.6 LEFT VENTRICLE The left ventricle is normal size. There is normal left ventricular wall thickness. Left ventricle systolic function is normal. The Ejection Fraction is >70%. There is normal LV segmental wall motion. Tissue Doppler imaging reveals abnormal left ventricular diastolic dysfunction. RIGHT VENTRICLE The right ventricle is normal size. There is normal right ventricular wall thickness. The right ventricular systolic function is normal. ATRIA The left atrium is borderline dilated. The right atrium size is normal. The interatrial septum is intact with no evidence for an atrial septal defect. AORTIC VALVE The aortic valve is normal in structure. No aortic regurgitation is present. There is no aortic valvular stenosis. MITRAL VALVE The mitral valve is normal in structure. There is no evidence of mitral valve prolapse. There is no mitral valve stenosis. There is no mitral valve regurgitation noted. TRICUSPID VALVE The tricuspid valve is normal in structure. There is no tricuspid valve regurgitation noted. There is no tricuspid valve prolapse or vegetation. There is no tricuspid valve stenosis. PULMONIC VALVE The pulmonic valve is not well visualized. There is no pulmonic valvular regurgitation. GREAT VESSELS The aortic root is mildly enlarged. PERICARDIAL EFFUSION There is no significant pericardial effusion. <Conclusion> Left ventricle systolic function is normal. The Ejection Fraction is >70%. Diastolic dysfunction. No aortic regurgitation is present. There is no mitral valve regurgitation noted. There is no tricuspid valve regurgitation noted. There is no pulmonic valvular regurgitation.
[2018-04-26 07:39] LABS: BASO % 0.1 % (0.0-2.0); HEMOGLOBIN 13.6 g/dL (12.0-18.0); LYMPH # 1.2 K/uL (1.0-4.3); LYMPH % 9.6 % (20.0-40.0); MEAN CELL VOLUME 83.5 fL (80.0-94.0); MEAN CORPUSCULAR HEMOGLOBIN 28.3 pg (27.0-31.0); MEAN CORPUSCULAR HGB CONC 33.9 g/dL (33.0-37.0); MEAN PLATELET VOLUME 10.2 fL (7.2-11.7); MONO # 0.2 K/uL (0.0-0.8); MONO % 1.7 % (0.0-10.0); NEUT # 11.1 K/uL (1.8-7.0); NEUT % 88.6 % (50.0-75.0); PLATELET COUNT 205 K/uL (130-400); RBC 4.81 Mil/uL (4.40-5.90); RED CELL DISTRIBUTION WIDTH 13.9 % (11.5-14.5); WHITE BLOOD COUNT 12.5 K/uL (4.8-10.8)
[2018-04-26 07:58] LABS: BLOOD UREA NITROGEN 18 mg/dL (9-20); GFR NON-AFRICAN AMERICAN > 60
[2018-04-26 07:59] LABS: ALB/GLOB RATIO 1.2 (1.0-2.1); ALBUMIN 3.6 g/dL (3.5-5.0); ALT/SGPT 24 U/L (21-72); AST/SGOT 18 U/L (17-59); CALCIUM 8.8 mg/dl (8.6-10.4)
[2018-04-26 09:18] LABS: EOSINOPHIL 2 % (0-4); LYMPHOCYTE 11 % (20-40); MONOCYTE 2 % (0-10); NEUTROPHIL 85 % (50-75); PLATELET ESTIMATE NORMAL (NORMAL); TOTAL CELLS COUNTED 100
[2018-04-26 09:22] LABS: FOLATE 12.2 ng/mL
--- NOTE | 2018-04-26 10:44 | CP.PCM.DIS ---
Provider - Provider Date of Admission: 04/24/18 19:43 Attending physician: Spencer Chavis MD Time Spent in preparation of Discharge (in minutes): 45 Diagnosis - Discharge Diagnosis (1) Neurocysticercosis Status: Acute (2) Stroke Status: Acute Hospital Course - Lab Results Lab Results: Most Recent Lab Values WBC 12.5 K/uL (4.8-10.8) H 04/26/18 07:35 RBC 4.81 Mil/uL (4.40-5.90) 04/26/18 07:35 Hgb 13.6 g/dL (12.0-18.0) 04/26/18 07:35 Hct 40.2 % (35.0-51.0) 04/26/18 07:35 MCV 83.5 fL (80.0-94.0) 04/26/18 07:35 MCH 28.3 pg (27.0-31.0) 04/26/18 07:35 MCHC 33.9 g/dL (33.0-37.0) 04/26/18 07:35 RDW 13.9 % (11.5-14.5) 04/26/18 07:35 Plt Count 205 K/uL (130-400) 04/26/18 07:35 MPV 10.2 fL (7.2-11.7) 04/26/18 07:35 Neut % (Auto) 88.6 % (50.0-75.0) H 04/26/18 07:35 Lymph % (Auto) 9.6 % (20.0-40.0) L 04/26/18 07:35 [place] % (Auto) 1.7 % (0.0-10.0) 04/26/18 07:35 Eos % (Auto) 0.0 % (0.0-4.0) 04/26/18 07:35 Baso % (Auto) 0.1 % (0.0-2.0) 04/26/18 07:35 Neut # (Auto) 11.1 K/uL (1.8-7.0) H 04/26/18 07:35 Lymph # (Auto) 1.2 K/uL (1.0-4.3) 04/26/18 07:35 [place] # (Auto) 0.2 K/uL (0.0-0.8) 04/26/18 07:35 Eos # (Auto) 0.0 K/uL (0.0-0.7) 04/26/18 07:35 Baso # (Auto) 0.0 K/uL (0.0-0.2) 04/26/18 07:35 Neutrophils % (Manual) 85 % (50-75) H 04/26/18 07:35 Lymphocytes % (Manual) 11 % (20-40) L 04/26/18 07:35 Monocytes % (Manual) 2 % (0-10) 04/26/18 07:35 Eosinophils % (Manual) 2 % (0-4) 04/26/18 07:35 Platelet Estimate Normal (NORMAL) 04/26/18 07:35 PT 11.9 SECONDS (9.7-12.2) 04/24/18 18:24 INR 1.1 04/24/18 18:24 APTT 30 SECONDS (21-34) 04/24/18 18:24 Sodium 137 mmol/L (132-148) 04/26/18 07:35 Potassium 4.0 mmol/L (3.6-5.2) 04/26/18 07:35 Chloride 107 mmol/L (98-107) 04/26/18 07:35 Carbon Dioxide 21 mmol/L (22-30) L 04/26/18 07:35 Anion Gap 12 (10-20) 04/26/18 07:35 BUN 18 mg/dL (9-20) 04/26/18 07:35 Creatinine 0.8 mg/dL (0.8-1.5) 04/26/18 07:35 Est GFR ( Amer) > 60 04/26/18 07:35 Est GFR (Non-Af Amer) > 60 04/26/18 07:35 POC Glucose (mg/dL) 84 mg/dL (65-110) 04/24/18 17:05 Random Glucose 147 mg/dL (75-110) H 04/26/18 07:35 Hemoglobin A1c 5.4 % (4.2-6.5) 04/24/18 18:24 Calcium 8.8 mg/dl (8.6-10.4) 04/26/18 07:35 Phosphorus 3.2 mg/dL (2.5-4.5) 04/25/18 06:12 Magnesium 2.0 mg/dL (1.6-2.3) 04/25/18 06:12 Total Bilirubin 0.6 mg/dL (0.2-1.3) 04/26/18 07:35 AST 18 U/L (17-59) 04/26/18 07:35 ALT 24 U/L (21-72) 04/26/18 07:35 Alkaline Phosphatase 70 U/L (38-126) 04/26/18 07:35 Troponin I < 0.0120 ng/mL (0.00-0.120) 04/24/18 18:24 Total Protein 6.6 g/dL (6.3-8.3) 04/26/18 07:35 Albumin 3.6 g/dL (3.5-5.0) 04/26/18 07:35 Globulin 3.0 gm/dL (2.2-3.9) 04/26/18 07:35 Albumin/Globulin Ratio 1.2 (1.0-2.1) 04/26/18 07:35 Triglycerides 77 mg/dL (0-149) 04/24/18 18:24 Cholesterol 188 mg/dL (0-199) 04/24/18 18:24 LDL Cholesterol Direct 104 mg/dL (0-129) 04/24/18 18:24 HDL Cholesterol 69 mg/dL (30-70) 04/24/18 18:24 Vitamin B12 245 pg/mL (239-931) 04/26/18 07:35 Folate 12.2 ng/mL 04/26/18 07:35 Free T4 0.83 ng/dL (0.78-2.19) 04/25/18 06:12 TSH 3rd Generation 8.75 mIU/L (0.46-4.68) H 04/25/18 06:12 HIV 1&2 Antibody Screen Negative (NEGATIVE) 04/25/18 13:20 Blood Type O POSITIVE 04/24/18 18:24 Antibody Screen Negative 04/24/18 18:24 - Hospital Course Hospital Course: CC: Right sided abdominal pain HPI: Patient is a 76 year old male with past medical history of CAD (CABG x3), HTN, HLD, and prior history of gall stones, who presents to the ED with his niece with complaints of right sided abdominal pain that started on 04/24/18 at 9am while sleeping. Patient reports the pain as a 9/10 intermittent squeezing pain that radiates to the right side of his chest, which is worsening with cough, hiccups and sneezing. In addition, patient had three episodes of non-bloody/non-bilious vomiting between Wednesday and Wednesday night as well 3-4 episodes of loose stool on Wednesday night. Patient states that he has been using warm compresses on his abdomen with no relief. As per EMR, patient has prior admission of probable choledocholithiasis. Patient admits to chills on Wednesday night but denies any symptoms of fever, chest pain, palpitations, shortness of breath. Patient has been on a liquid diet since Wednesday. Code Status: Full code Emergency contact: Primo Escobar, PMD: Mason Barakat PSHx: CAD (CABG x3; 1980,1985 and 1999), HTN, HLD, and prior history of gall stones FHx: Unknown Medications: Ramipril 5mg po daily, Toprol XL 50mg PO daily, Lipitor 40mg PO HS Allergies: NKDA Social Hx: Lives alone. Denies any current or former use of Tobacco and illicit drugs and occasional ETOH intake Hospital Course: CVA L Parietal - ASA 81mg po daily - Plavix 75mg PO qd - Rosuvastatin - NS @100 - Neuro consulted: Dr. Fox - recs appreciated - Lovenox 40 sc given once Neurocystercosis - MRI shows multiple lesions - ID Dr Woodall Consulted f/u recs - dexamethasone 0.1mg/kg qd - Albendazole 600mg PO BID tmrw 1600 - Ativan 1mg q6 PRN for seizures DIAGNOSTICS AND IMAGING - CXR (04/24): pending read - Head CT (04/24): pending read. Prelim: multiple scattered round calcifications within both cerebral hemispheres. All calcifications are less than 4mm in diameter without edema. - MRI: L parietal stroke as read by Dr Hutchins Neurology DISCHARGE PLAN Discharge Exam - Head Exam Head Exam: ATRAUMATIC, NORMOCEPHALIC Discharge Plan - Follow Up Plan Condition: GOOD Disposition: HOME/ ROUTINE
[2018-04-26] MEDS: Dexamethasone 4 mg/1 ml IVP SCH (10:59)
[2018-04-26] MEDS ORDERED: Iodixanol 320 MG/ML 100 ML BOTTLE IV ONE (12:39)
--- NOTE | 2018-04-26 13:56 | CP.PCM.CON ---
History of Present Illness - History of Present Illness History of Present Illness: dictated Past Patient History - Past Social History Smoking Status: Light Smoker < 10 Cigarettes Daily Alcohol: Social Drugs: Denies - CARDIAC Hx Hypertension: Yes - ENDOCRINE/METABOLIC Hx Hypothyroidism: Yes - PSYCHIATRIC Hx Substance Use: No - SURGICAL HISTORY Hx Surgeries: No - ANESTHESIA Hx Anesthesia: No Meds Home Medications: Home Medication List Medication Instructions Recorded Confirmed Type Albendazole [Albenza 200 mg Tab] 600 mg PO BID #20 tab 04/26/18 Rx Aspirin [Aspirin Chewable] 81 mg PO DAILY #14 chew 04/26/18 Rx Clopidogrel [Plavix] 75 mg PO DAILY #14 tab 04/26/18 Rx Levothyroxine [Synthroid] 75 mcg PO DAILY #30 tab 04/26/18 Rx Allergies/Adverse Reactions: Allergies Allergy/AdvReac Type Severity Reaction Status Date / Time No Known Allergies Allergy Verified 04/24/18 17:05 - Medications Medications: Current Medications Albendazole (Albenza 200 Mg Tab) 600 mg PO BID [facility]; Protocol Last Admin: 04/26/18 11:01 Dose: 600 mg Aspirin (Aspirin Chewable) 81 mg PO DAILY [facility] Last Admin: 04/26/18 10:59 Dose: 81 mg Clopidogrel Bisulfate (Plavix) 75 mg PO DAILY [facility] Last Admin: 04/26/18 10:59 Dose: 75 mg Dexamethasone (Decadron) 4 mg PO BID [facility] Levothyroxine Sodium (Synthroid) 75 mcg PO DAILY@0630 [facility] Last Admin: 04/26/18 06:19 Dose: 75 mcg Lorazepam (Ativan) 1 mg IVP Q6H PRN PRN Reason: Seizure activity Rosuvastatin Calcium (Crestor) 20 mg PO [facility] Last Admin: 04/25/18 21:54 Dose: 20 mg Results - Vital Signs Recent Vital Signs: Last Vital Signs Temp 98.2 F 04/26/18 07:00 Pulse 65 04/26/18 07:48 Resp 20 04/26/18 07:00 BP 137/74 04/26/18 07:00 Pulse Ox 97 04/26/18 07:00 - Labs Result Diagrams: 04/26/18 07:35 04/26/18 07:35 Labs: Laboratory Results - last 24 hr 04/25/18 04/26/18 04/26/18 13:20 07:35 07:35 WBC 12.5 H RBC 4.81 Hgb 13.6 Hct 40.2 MCV 83.5 MCH 28.3 MCHC 33.9 RDW 13.9 Plt Count 205 MPV 10.2 Neut % (Auto) 88.6 H Lymph % (Auto) 9.6 L [place] % (Auto) 1.7 Eos % (Auto) 0.0 Baso % (Auto) 0.1 Neut # (Auto) 11.1 H Lymph # (Auto) 1.2 [place] # (Auto) 0.2 Eos # (Auto) 0.0 Baso # (Auto) 0.0 Neutrophils % (Manual) 85 H Lymphocytes % (Manual) 11 L Monocytes % (Manual) 2 Eosinophils % (Manual) 2 Platelet Estimate Normal Sodium 137 Potassium 4.0 Chloride 107 Carbon Dioxide 21 L Anion Gap 12 BUN 18 Creatinine 0.8 Est GFR ( Amer) > 60 Est GFR (Non-Af Amer) > 60 Random Glucose 147 H Calcium 8.8 Total Bilirubin 0.6 AST 18 ALT 24 Alkaline Phosphatase 70 Total Protein 6.6 Albumin 3.6 Globulin 3.0 Albumin/Globulin Ratio 1.2 Vitamin B12 245 Folate 12.2 HIV 1&2 Antibody Screen Negative
--- NOTE | 2018-04-26 15:06 | CP.PCM.PN ---
<Gutierrez Cordero - Last Filed: 04/26/18 15:29> Subjective - Date & Time of Evaluation Date of Evaluation: 04/26/18 Time of Evaluation: 14:54 - Subjective Subjective: Hospitalist Service Pt seen and examined at bedside. Pt reports no acute events overnight. Pt reports improvement of numbness and weakness. Denies CP SOB FC NV Objective - Vital Signs/Intake and Output Vital Signs (last 24 hours): Temp Pulse Resp BP Pulse Ox 98.2 F 65 20 137/74 97 04/26/18 07:00 04/26/18 07:48 04/26/18 07:00 04/26/18 07:00 04/26/18 07:00 - Medications Medications: Current Medications Albendazole (Albenza 200 Mg Tab) 600 mg PO BID [facility]; Protocol Last Admin: 04/26/18 11:01 Dose: 600 mg Aspirin (Aspirin Chewable) 81 mg PO DAILY [facility] Last Admin: 04/26/18 10:59 Dose: 81 mg Clopidogrel Bisulfate (Plavix) 75 mg PO DAILY [facility] Last Admin: 04/26/18 10:59 Dose: 75 mg Dexamethasone (Decadron) 4 mg PO BID [facility] Levothyroxine Sodium (Synthroid) 75 mcg PO DAILY@0630 [facility] Last Admin: 04/26/18 06:19 Dose: 75 mcg Lorazepam (Ativan) 1 mg IVP Q6H PRN PRN Reason: Seizure activity Rosuvastatin Calcium (Crestor) 20 mg PO HS [facility] Last Admin: 04/25/18 21:54 Dose: 20 mg - Labs Labs: 04/26/18 07:35 04/26/18 07:35 PT 11.9 SECONDS (9.7-12.2) 04/24/18 18:24 INR 1.1 04/24/18 18:24 APTT 30 SECONDS (21-34) 04/24/18 18:24 - Constitutional Appears: Well, Non-toxic, No Acute Distress - Head Exam Head Exam: ATRAUMATIC, NORMAL INSPECTION, NORMOCEPHALIC - Eye Exam Eye Exam: EOMI, Normal appearance. absent: Scleral icterus - ENT Exam ENT Exam: Mucous Membranes Moist - Neck Exam Neck Exam: Full ROM, Normal Inspection - Respiratory Exam Respiratory Exam: Clear to Ausculation Bilateral, NORMAL BREATHING PATTERN - Cardiovascular Exam Cardiovascular Exam: RRR, +S1, +S2 - GI/Abdominal Exam GI & Abdominal Exam: Soft. 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 Plan: CVA L Parietal - CXR (04/24): pending read - Head CT (04/24): pending read. Prelim: multiple scattered round calcifications within both cerebral hemispheres. All calcifications are less than 4mm in diameter without edema. - MRI: L parietal stroke as read by Dr Hutchins Neurology sub arachnoid, supretentorial calcifications consistent w/ neurocystercosi - CTA (04/26): Pending read - Hgb A1c 5.4, Trop neg - Lipid panel: TG 77 Chol 188 LD 104 HDL 69 - ASA 81mg po daily - Plavix 75mg PO qd - Rosuvastatin - NS @100 - Neuro consulted: Dr. Fox - recs appreciated Neurocystercosis - MRI shows multiple lesions sub arachnoid, supretentorial calcifications consistent w/ neurocystercosi - ID Dr Woodall Consulted f/u recs - dexamethasone 0.1mg/kg qd for 28days, day 2 , then taper - Albendazole 600mg BID - Ativan 1mg q6 PRN for seizures Hypothyroidism - has been controlled with medication - patient does not know the name or dosing of his medication. - chart review shows he has hypothyroidism and took Synthroid 50mcg daily at the beginning of 2015 - will give [facility] [phone] call once open at 10am to confirm name and dosing - 8.75 TSH, free T4 normal Hypertension - controlled via diet and lifestyle - monitor vitals PPx - DVT: Lovenox 40mg sc daily, SCDs - GI: not indicated at this time - Diet: HHD 2g Na <Chavis,Spencer J - Last Filed: 04/29/18 23:23> Objective - Vital Signs/Intake and Output Vital Signs (last 24 hours): Temp Pulse Resp BP Pulse Ox 87.9 F L 74 20 129/65 100 04/29/18 15:00 04/29/18 15:00 04/29/18 15:00 04/29/18 15:00 04/29/18 15:00 - Labs Labs: 04/29/18 07:09 04/29/18 07:09 PT 11.9 SECONDS (9.7-12.2) 04/24/18 18:24 INR 1.1 04/24/18 18:24 APTT 30 SECONDS (21-34) 04/24/18 18:24 Attending/Attestation - Attestation I have personally seen and examined this patient.: Yes I have fully participated in the care of the patient.: Yes I have reviewed all pertinent clinical information, including history, physical exam and plan: Yes Notes (Text): 04/29/18 23:23 This is a late entry. Care of this patient was gone over in detail with resident Dr. Cordero. Spencer Chavis D.O.
--- NOTE | 2018-04-26 16:29 | CT ---
Date of service: 04/26/2018 PROCEDURE: CT Angiography of the Brain. HISTORY: MRI SHOWED NEW STROKE COMPARISON: No prior similar study available for comparison TECHNIQUE: CT angiography of the intracranial arteries was performed. Coronal and sagittal maximum intensity projection reformated images were generated. Contrast volume: 100 mL of Visipaque 320 intravenously. Radiation dose: Total exam DLP = 508.63 mGy-cm. This CT exam was performed using one or more of the following dose reduction techniques: Automated exposure control, adjustment of the mA and/or kV according to patient size, and/or use of iterative reconstruction technique. FINDINGS: RIGHT CAROTID ARTERIES: Common Carotid Artery: Normal. Carotid Bifurcation: Normal. Internal Carotid Artery:Normal. External Carotid Artery (proximal branches): Normal. LEFT CAROTID ARTERIES: Common Carotid Artery: Normal. Carotid Bifurcation: Normal. Internal Carotid Artery:Normal. External Carotid Artery (proximal branches): Normal. VERTEBRAL ARTERIES: Right Vertebral Artery: Normal. Left Vertebral Artery: Very small size proximal and mid left vertebral artery. The distal portion of the left vertebral artery is not visualized INTERNAL CEREBRAL ARTERIES: Unremarkable. The skull base, petrous, cavernous and supraclinoid segments are bilaterally widely patent. ANTERIOR CEREBRAL ARTERIES: Unremarkable. A1 and A2 segments are widely patent. Smaller distal branches unremarkable, as visualized. MIDDLE CEREBRAL ARTERIES: Foci of mild stenosis noted in the bilateral M1 segment of the middle cerebral arteries. POSTERIOR CIRCULATION: Basilar Artery: The basilar artery is small in size. Distal Vertebral Arteries: The distal segment of the right vertebral artery is not visualized Posterior Cerebral Arteries: There is a origin of the right posterior cerebral artery Posterior Inferior Cerebellar Arteries: Very small in size on the right barely seen and not clearly seen on the left. ANEURYSM/ VASCULAR MALFORMATIONS: None. OTHER FINDINGS: There is large cystic low-attenuation lesion at the midline lower neck which has increased in size since the previous CT of the neck dated 01/28/2016. IMPRESSION: No evidence of intracranial arterial occlusion. Foci of mild stenosis noted in the bilateral middle cerebral arteries. Small size left vertebral artery and basilar artery. origin of the right posterior cerebral artery supplies from the anterior circulation.
--- NOTE | 2018-04-27 01:16 | CON ---
DATE: 04/24/2018 INFECTIOUS DISEASE CONSULTATION CONSULTATION REQUESTED BY: Spencer Chavis DO HISTORY OF PRESENT ILLNESS: This patient is a 57-year-old, he is from [facility], patient with history of hypertension and hypothyroidism. He came in with some numbness and loss of sensation on his right arm and it started a day before, he was admitted and I am asked to evaluate him. 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 The MRI reveals some signs of neurocysticercosis and so I am asked to evaluate him. He is awake, alert, able to give history. He denies any fevers, chills, or any blurring vision. He does eat meat he says and he does get headaches one or two times a week. Denies any chills. No blurring vision. No weakness. No fatigue. No shortness of breath, nausea, vomiting, or constipation. No urinary symptoms. He has a neck mass which has been worked up in the past and is found to be benign. FAMILY HISTORY: Noncontributory. SOCIAL HISTORY: He smokes two to three cigarettes a day. He drinks socially. He denies any drug abuse. He lives at home with his three kids. 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 REVIEW OF SYSTEMS: His is at the bedside. Review of system was totally unremarkable. I went through all the 10 systems and thus far having this numbness which was new. PAST SURGICAL HISTORY: No previous surgeries. No anesthesia. ALLERGIES: NOT ALLERGIC TO ANY MEDICINE. PHYSICAL EXAMINATION: GENERAL: He is awake, alert, oriented x3. His speech is normal. HEENT: Pupils are reacting to light. No icterus. No facial droop. NECK: Supple. JVP is flat. LUNGS: Clear. No crackles or rales present. HEART: S1 and S2, regular. ABDOMEN: Soft, nontender, no guarding, no rigidity present. EXTREMITIES: No edema, clubbing, or cyanosis. He has some numbness on the right arm and he was evaluated by the neurologist. LABORATORY DATA: Labs show white count is 12.5. Today, we started him on Decadron. Hemoglobin 13.6, hematocrit 40.2, platelet count is 205. Anion gap is 12, BUN is 18, creatinine 0.8. His glucose was 147. TSH is mildly elevated at 8.75, free T4 is 0.83. HIV is negative. So, TSH is mildly elevated, but free T4 is therapeutic. He had a brain MRI done and the brain MRI shows there are multiple tiny nonenhancing, nonspecific focal areas of increased T2 signals scattered about the deep and subcortical white matter in both cerebral hemispheres likely representing chronic sequelae of small vessel disease. Additionally, there appears to be small minimal chronic periventricular white matter ischemic changes, previously noted numerous small round and elliptical shaped subarachnoid calcifications were seen scattered around the subtentorial compartment consistent with neurocysticercosis and are less well seen on this exam as compared to high-resolution CT scan of brain. ASSESSMENT AND PLAN: He does have neurocysticercosis. We will look up the head CT report at this time. He will need albendazole for a month and dosage has been calculated with his weight. He is also on Decadron, will be given for next 10 days to prevent any seizure activity due to the dying neurocysticercosis. So, we agreed with the plan. We will also try to get neurocysticercosis antibodies in the serum, and we will follow if he continues to be here. Pal Woodall MD
[2018-04-27] MEDS: Levothyroxine 75 MCG TAB PO SCH (05:54)
[2018-04-27 07:48] LABS: BASO % 0.2 % (0.0-2.0); EOS % 0.2 % (0.0-4.0); HEMOGLOBIN 13.2 g/dL (12.0-18.0); LYMPH # 2.7 K/uL (1.0-4.3); LYMPH % 17.1 % (20.0-40.0); MEAN CELL VOLUME 83.2 fL (80.0-94.0); MEAN CORPUSCULAR HEMOGLOBIN 28.3 pg (27.0-31.0); MEAN PLATELET VOLUME 10.1 fL (7.2-11.7); MONO # 0.9 K/uL (0.0-0.8); MONO % 5.6 % (0.0-10.0); NEUT # 11.9 K/uL (1.8-7.0); NEUT % 76.9 % (50.0-75.0); NRBC % 0.1 % (0.0-2.0); RBC 4.67 Mil/uL (4.40-5.90); RED CELL DISTRIBUTION WIDTH 14.2 % (11.5-14.5); WHITE BLOOD COUNT 15.5 K/uL (4.8-10.8)
[2018-04-27 08:01] LABS: ALB/GLOB RATIO 1.2 (1.0-2.1); ALBUMIN 3.6 g/dL (3.5-5.0); ALT/SGPT 24 U/L (21-72); AST/SGOT 16 U/L (17-59); BLOOD UREA NITROGEN 15 mg/dL (9-20); CALCIUM 8.7 mg/dl (8.6-10.4); GFR NON-AFRICAN AMERICAN > 60
--- NOTE | 2018-04-27 08:46 | US ---
Date of service: 04/26/2018 HISTORY: Neurocystocercosis (Suspect Cysts in Liver?) COMPARISON: None. TECHNIQUE: Sonographic evaluation of the abdomen. FINDINGS: LIVER: Measures 13.8 cm. Diffusely increased echogenicity of the liver parenchyma. Consistent with fatty infiltration. No mass. Smooth contour. No biliary dilatation. Normal hepatopetal portal venous flow. GALLBLADDER: Unremarkable. No gallstones. COMMON BILE DUCT: Measures 7 mm. No stones. No dilatation. PANCREAS: Unremarkable as visualized. No mass. No ductal dilatation. RIGHT KIDNEY: Measures 10.5cm. Normal echogenicity. No calculus, mass, or hydronephrosis. LEFT KIDNEY: Measures 10.6cm. Normal echogenicity. No calculus, mass, or hydronephrosis. SPLEEN: Normal in size and contour. No mass. AORTA: No aneurysmal dilatation. IVC: Unremarkable. OTHER FINDINGS: None. IMPRESSION: Mild fatty infiltration of the liver. Otherwise unremarkable examination. The preliminary findings for this examination were reported by [facility] at 8:55 p.m. on 04/26/2018. There is concurrence of this report with the preliminary findings.
--- NOTE | 2018-04-27 14:10 | CP.PCM.PN ---
<Gutierrez Cordero - Last Filed: 04/27/18 15:41> Subjective - Date & Time of Evaluation Date of Evaluation: 04/27/18 Time of Evaluation: 14:08 - Subjective Subjective: Hospitalist Service Pt seen and examined at bedside, Pt says the shoulder neck and pre-auricular numbness has subsided. He reports residual numbness in the dorsum of the right hand and the medial edge of the forearm. He denies acute events overnight, denies seizures, shakes, changes in vision, hearing , dizziniess headaches. paul es cp sob fc nv. Objective - Vital Signs/Intake and Output Vital Signs (last 24 hours): Temp Pulse Resp BP Pulse Ox 98.3 F 67 20 142/67 97 04/27/18 07:10 04/27/18 07:10 04/27/18 07:10 04/27/18 07:10 04/27/18 07:10 Intake and Output: 04/27/18 04/27/18 06:59 18:59 Intake Total 10 Balance 10 - Medications Medications: Current Medications Albendazole (Albenza 200 Mg Tab) 400 mg PO BID [facility]; Protocol Last Admin: 04/27/18 10:09 Dose: 400 mg Aspirin (Aspirin Chewable) 81 mg PO DAILY [facility] Last Admin: 04/27/18 10:09 Dose: 81 mg Clopidogrel Bisulfate (Plavix) 75 mg PO DAILY [facility] Last Admin: 04/27/18 10:09 Dose: 75 mg Dexamethasone (Decadron) 4 mg PO BID [facility] Last Admin: 04/27/18 10:09 Dose: 4 mg Influenza Virus Vaccine (Fluzone Quad [id number]) 60 mcg IM .ONCE ONE Stop: 04/28/18 12:01 Levothyroxine Sodium (Synthroid) 75 mcg PO DAILY@0630 [facility] Last Admin: 04/27/18 05:54 Dose: 75 mcg Lorazepam (Ativan) 1 mg IVP Q6H PRN PRN Reason: Seizure activity Pneumococcal Polyvalent Vaccine (Pneumovax 23 Vaccine) 0.5 ml IM .ONCE ONE Stop: 04/28/18 12:01 Rosuvastatin Calcium (Crestor) 20 mg PO HS [facility] Last Admin: 04/26/18 21:36 Dose: 20 mg - Labs Labs: 04/27/18 07:41 04/27/18 07:41 PT 11.9 SECONDS (9.7-12.2) 04/24/18 18:24 INR 1.1 04/24/18 18:24 APTT 30 SECONDS (21-34) 04/24/18 18:24 - Additional Findings Additional findings: - Head Exam Head Exam: ATRAUMATIC, NORMAL INSPECTION, NORMOCEPHALIC - Eye Exam Eye Exam: EOMI, Normal appearance. absent: Scleral icterus - ENT Exam ENT Exam: Mucous Membranes Moist - Neck Exam Neck Exam: Full ROM, Normal Inspection - Respiratory Exam Respiratory Exam: Clear to Ausculation Bilateral, NORMAL BREATHING PATTERN - Cardiovascular Exam Cardiovascular Exam: RRR, +S1, +S2 - GI/Abdominal Exam GI & Abdominal Exam: Soft. 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 intact bilaterally - Neurological Exam Neurological Exam: Alert, Awake, CN II-XII Intact, Motor Sensory Deficit (sensation diminished over L forarm and dorsum of hand- improving), Oriented x3, Reflexes Normal - Psychiatric Exam Psychiatric exam: Normal Affect, Normal Mood - Skin Skin Exam: Normal Color, Warm Assessment and Plan (1) Neurocysticercosis Status: Acute (2) Stroke Status: Acute - Assessment and Plan (Free Text) Assessment: 57yo [place] M PMH hypothyroidism, HTN w/ CVA and Neurocystercosis, observing for side effects possible dc tmrw Plan: CVA L Parietal - CXR (04/24): Neg - Head CT (04/24): multiple scattered round calcifications within both cerebral hemispheres. All calcifications are less than 4mm in diameter without edema. - MRI: L parietal stroke as read by Dr Hutchins Neurology sub arachnoid, supretentorial calcifications consistent w/ neurocystercosi - CTA (04/26): mild stenosis of bilateral basilar arteties - Hgb A1c 5.4, Trop neg - Lipid panel: TG 77 Chol 188 LD 104 HDL 69 - ASA 81mg po daily - Plavix 75mg PO qd - Rosuvastatin - NS @100 - Neuro consulted: Dr. Hutchins - recs appreciated Neurocystercosis - MRI shows multiple lesions sub arachnoid, supretentorial calcifications consistent w/ neurocystercosi - ID Dr Woodall Consulted appreciated recs - dexamethasone 0.1mg/kg qd for 28days, day 2 , then taper - Albendazole 600mg BID - Ativan 1mg q6 PRN for seizures - BC neg 24hrs - f/u lyme titers Hypothyroidism - Synthroid 75 @ 630am daily - 8.75 TSH, free T4 normal Hypertension - controlled via diet and lifestyle - monitor vitals PPx - DVT: Lovenox 40mg sc daily, SCDs - GI: not indicated at this time - Diet: HHD 2g Na Dispo: Pending observation of albedazole side effect of cysterci related seizures/ inflammation. plan for d/c Fri AM <Spencer Chavis - Last Filed: 04/28/18 00:03> Objective - Vital Signs/Intake and Output Vital Signs (last 24 hours): Temp Pulse Resp BP Pulse Ox 98.1 F 66 18 125/66 97 04/27/18 15:35 04/27/18 15:35 04/27/18 15:35 04/27/18 15:35 04/27/18 15:35 - Medications Medications: Current Medications Albendazole (Albenza 200 Mg Tab) 400 mg PO BID [facility]; Protocol Last Admin: 04/27/18 17:41 Dose: 400 mg Aspirin (Aspirin Chewable) 81 mg PO DAILY [facility] Last Admin: 04/27/18 10:09 Dose: 81 mg Clopidogrel Bisulfate (Plavix) 75 mg PO DAILY [facility] Last Admin: 04/27/18 10:09 Dose: 75 mg Dexamethasone (Decadron) 4 mg PO BID [facility] Last Admin: 04/27/18 17:41 Dose: 4 mg Influenza Virus Vaccine (Fluzone Quad [id number]) 60 mcg IM .ONCE ONE Stop: 04/28/18 12:01 Levothyroxine Sodium (Synthroid) 75 mcg PO DAILY@0630 [facility] Last Admin: 04/27/18 05:54 Dose: 75 mcg Lorazepam (Ativan) 1 mg IVP Q6H PRN PRN Reason: Seizure activity Pneumococcal Polyvalent Vaccine (Pneumovax 23 Vaccine) 0.5 ml IM .ONCE ONE Stop: 04/28/18 12:01 Rosuvastatin Calcium (Crestor) 20 mg PO HS [facility] Last Admin: 04/27/18 21:59 Dose: 20 mg - Labs Labs: 04/27/18 07:41 04/27/18 07:41 PT 11.9 SECONDS (9.7-12.2) 04/24/18 18:24 INR 1.1 04/24/18 18:24 APTT 30 SECONDS (21-34) 04/24/18 18:24 Attending/Attestation - Attestation I have personally seen and examined this patient.: Yes I have fully participated in the care of the patient.: Yes I have reviewed all pertinent clinical information, including history, physical exam and plan: Yes Notes (Text): 04/27/18 23:52 Patient was seen and examined at 6:45 PM 04/27/18 Care of this patient was gone over with resident Dr. Cordero. Medicine Team please speak with ID Dr. Woodall to go over the following for the treatment of Neurocysticercosis : 1). Optimal Albendazole dosing for this patient base upon weight (15 mg/kg per day total divided into 2 doses) is 600 mg PO 2x/day. He is currently only on 400 mg PO 2x/day. 2). Considering that there are more than 2 cysts presents on imaging we also nee d to add Praziquantel (50 mg/kg per day divided into 3 doses). Based upon his weight this would be Praziquantel 600 mg 2 tablets by mouth 3x/day. 3). Both Albendaole and Praziquantel should be given for a total of 14 days. 4). He is currently on Dexamethasone 4 mg PO 2x/day and this should be continued for 28 days followed by a taper. This longer duration of steroid therapy has been associated with fewer seizures. Will need to continue ASA and Statin (Atorvastatin upon discharge) for the infarcts noted in brain. It has been stressed to patient and his family and friends who have been present at time throughout his admission, the importance of washing hands to prevent spread of infection and reinfection. This was explained to patient in Lithuanian on 04/26/18 with the help of Nurse Kristine who translated in Lithuanian. As long as patient continues to remain stable on 04/28/18, then should be discharged on 04/29/18. Spencer Chavis D.O.
--- NOTE | 2018-04-27 16:36 | CP.PCM.PN ---
Subjective - Date & Time of Evaluation Date of Evaluation: 04/27/18 Time of Evaluation: 11:50 - Subjective Subjective: PGY2 Neuro Note for Dr. Hutchins Patient seen and examined this morning at bedside. Patient is feeling well, sensation still improving and is still located in his right hand and right side of head. Patient has no other complaints at this time. Objective - Vital Signs/Intake and Output Vital Signs (last 24 hours): Temp Pulse Resp BP Pulse Ox 98.3 F 67 20 142/67 97 04/27/18 07:10 04/27/18 07:10 04/27/18 07:10 04/27/18 07:10 04/27/18 07:10 Intake and Output: 04/27/18 04/27/18 06:59 18:59 Intake Total 10 Balance 10 - Medications Medications: Current Medications Albendazole (Albenza 200 Mg Tab) 400 mg PO BID [facility]; Protocol Last Admin: 04/27/18 10:09 Dose: 400 mg Aspirin (Aspirin Chewable) 81 mg PO DAILY [facility] Last Admin: 04/27/18 10:09 Dose: 81 mg Clopidogrel Bisulfate (Plavix) 75 mg PO DAILY [facility] Last Admin: 04/27/18 10:09 Dose: 75 mg Dexamethasone (Decadron) 4 mg PO BID [facility] Last Admin: 04/27/18 10:09 Dose: 4 mg Influenza Virus Vaccine (Fluzone Quad [id number]) 60 mcg IM .ONCE ONE Stop: 04/28/18 12:01 Levothyroxine Sodium (Synthroid) 75 mcg PO DAILY@0630 [facility] Last Admin: 04/27/18 05:54 Dose: 75 mcg Lorazepam (Ativan) 1 mg IVP Q6H PRN PRN Reason: Seizure activity Pneumococcal Polyvalent Vaccine (Pneumovax 23 Vaccine) 0.5 ml IM .ONCE ONE Stop: 04/28/18 12:01 Rosuvastatin Calcium (Crestor) 20 mg PO HS [facility] Last Admin: 04/26/18 21:36 Dose: 20 mg - Labs Labs: 04/27/18 07:41 04/27/18 07:41 PT 11.9 SECONDS (9.7-12.2) 04/24/18 18:24 INR 1.1 04/24/18 18:24 APTT 30 SECONDS (21-34) 04/24/18 18:24 - Constitutional Appears: Non-toxic, No Acute Distress - Head Exam Head Exam: ATRAUMATIC, NORMOCEPHALIC - Eye Exam Eye Exam: Normal appearance - ENT Exam ENT Exam: Mucous Membranes Moist - Respiratory Exam Respiratory Exam: NORMAL BREATHING PATTERN. absent: Accessory Muscle Use, Respiratory Distress - Neurological Exam Neurological Exam: Alert, Awake, CN II-XII Intact, Oriented x3 Neuro motor strength exam: Left Upper Extremity: 5, Right Upper Extremity: 5, Left Lower Extremity: 5, Right Lower Extremity: 5 Additional comments: NIHSS - 1 Extinction to bilateral simultaneous stimulation +1 Otherwise normal - Psychiatric Exam Psychiatric exam: Normal Affect, Normal Mood - Skin Skin Exam: Dry, Normal Color, Warm Assessment and Plan (1) Stroke Assessment & Plan: Mr. Sommer is a 57 year old male with a resolving acute infarct in the left parietal region, in addition to multiple old, calcified cysticerci. Today his NIHSS scale has improved to 1 with a decrease in extinction to simultaneous stimulation in the V1-V2 region. Patient is stable from neurological standpoint for discharge. He is to follow up with Dr. Hutchins in her office in 1 month. 1. Aspirin 81 mg daily 2. Statin for goal LDL less than 70. Status: Acute (2) Neurocysticercosis Assessment & Plan: Continue treatment as per ID and primary team Status: Acute - Assessment and Plan (Free Text) Plan: Please do no hesitate to call with any questions Case discussed with Dr. Cuong Romero Carol PGY2
--- NOTE | 2018-04-27 17:53 | CARD ---
APPROVED REPORT Date of service: 04/24/2018 EKG Measurement Heart [id number] <Conclusion> Normal sinus rhythm Normal ECG
--- NOTE | 2018-04-27 21:40 | CP.PCM.PN ---
Subjective - Date & Time of Evaluation Date of Evaluation: 04/27/18 Time of Evaluation: 13:00 - Subjective Subjective: dictated Objective - Vital Signs/Intake and Output Vital Signs (last 24 hours): Temp Pulse Resp BP Pulse Ox 98.1 F 66 18 125/66 97 04/27/18 15:35 04/27/18 15:35 04/27/18 15:35 04/27/18 15:35 04/27/18 15:35 - Medications Medications: Current Medications Albendazole (Albenza 200 Mg Tab) 400 mg PO BID [facility]; Protocol Last Admin: 04/27/18 17:41 Dose: 400 mg Aspirin (Aspirin Chewable) 81 mg PO DAILY [facility] Last Admin: 04/27/18 10:09 Dose: 81 mg Clopidogrel Bisulfate (Plavix) 75 mg PO DAILY [facility] Last Admin: 04/27/18 10:09 Dose: 75 mg Dexamethasone (Decadron) 4 mg PO BID [facility] Last Admin: 04/27/18 17:41 Dose: 4 mg Influenza Virus Vaccine (Fluzone Quad [id number]) 60 mcg IM .ONCE ONE Stop: 04/28/18 12:01 Levothyroxine Sodium (Synthroid) 75 mcg PO DAILY@0630 [facility] Last Admin: 04/27/18 05:54 Dose: 75 mcg Lorazepam (Ativan) 1 mg IVP Q6H PRN PRN Reason: Seizure activity Pneumococcal Polyvalent Vaccine (Pneumovax 23 Vaccine) 0.5 ml IM .ONCE ONE Stop: 04/28/18 12:01 Rosuvastatin Calcium (Crestor) 20 mg PO HS [facility] Last Admin: 04/26/18 21:36 Dose: 20 mg - Labs Labs: 04/27/18 07:41 04/27/18 07:41 PT 11.9 SECONDS (9.7-12.2) 04/24/18 18:24 INR 1.1 04/24/18 18:24 APTT 30 SECONDS (21-34) 04/24/18 18:24
--- NOTE | 2018-04-28 00:04 | CP.PCM.PCO ---
Physician Communication Note - Physician Communication Note Physician Communication Note: Please see above
--- NOTE | 2018-04-28 02:39 | PN ---
DATE: 04/27/2018 SUBJECTIVE: The patient is feeling better. He states his numbness on the right arm is better and his sensation is getting better. PHYSICAL EXAMINATION: HEENT: Head is atraumatic and normocephalic. NECK: Supple. LUNGS: Clear. HEART: S1 and S2 regular. ABDOMEN: Soft. Nontender. No guarding. No rigidity present. EXTREMITIES: No edema, clubbing, or cyanosis. He is tolerating the medication well. His white count went up because of Decadron, it is 15.5, and he seemed to be tolerating the medications for few days and then he should be able to go on albendazole which he will need for a month, and his TSH should be repeated to make sure and his RPR HIV is negative and serum cysticercosis antibodies have been ordered. Pal Woodall MD
[2018-04-28] MEDS: Levothyroxine 75 MCG TAB PO SCH (06:13)
[2018-04-28 06:52] LABS: BASO % 0.2 % (0.0-2.0); EOS % 0.1 % (0.0-4.0); HEMOGLOBIN 14.7 g/dL (12.0-18.0); LYMPH # 2.9 K/uL (1.0-4.3); LYMPH % 16.5 % (20.0-40.0); MEAN CORPUSCULAR HGB CONC 33.8 g/dL (33.0-37.0); MEAN PLATELET VOLUME 10.1 fL (7.2-11.7); MONO # 0.7 K/uL (0.0-0.8); MONO % 3.9 % (0.0-10.0); NEUT % 79.3 % (50.0-75.0); NRBC % 0.1 % (0.0-2.0); RBC 5.24 Mil/uL (4.40-5.90); RED CELL DISTRIBUTION WIDTH 14.1 % (11.5-14.5); WHITE BLOOD COUNT 17.7 K/uL (4.8-10.8)
[2018-04-28 07:48] LABS: ALB/GLOB RATIO 1.3 (1.0-2.1); ALBUMIN 4.2 g/dL (3.5-5.0); ALT/SGPT 20 U/L (21-72); AST/SGOT 26 U/L (17-59); BLOOD UREA NITROGEN 15 mg/dL (9-20); CALCIUM 9.2 mg/dl (8.6-10.4); GFR NON-AFRICAN AMERICAN > 60
[2018-04-28] MEDS ORDERED: Pneumococcal 23-Valent Vaccine IM ONE (12:00)
[2018-04-28] MEDS ORDERED: Influenza Vaccine 60 MCG/0.5 ML SYR (3 yr & up) IM ONE (12:00)
--- NOTE | 2018-04-28 15:33 | PCM.EEG ---
Electroencephalogram Report - Electroencephalogram Report Procedure Date: 04/26/18 Medication: Lovenox, Decadron, Crestor Interpretation: Technical Information: This was a 16 -channel EEG, 1-channel EKG routine EEG performed using an [employer] machine. Electrodes were applied using the 10/20 international placement system. Start 9;47 AM End 10;10 AM total; 22 minutes. Clinical Information: 57 y/o man with episodes of loss of consciousness. During resting wakefulness there was a symmetric posterior dominant rhythm at 8.5-9.5 Hz, 30-50 uV, which was reactive to eye opening and closing. Drowsiness (9:49 AM) was associated with fragmentation of the posterior dominant rhythm and with slow roving eye movements. Light sleep (9;52AM) was recorded and was characterized by central vertex waves, sleep spindles, and bilateral theta slowing. Hyperventilation was not performed. Photic stimulation was performed and there were no changes on the record. Focal abnormality; none ECG was associated with a normal sinus rhythm. Impression: This is a normal awake drowsy and sleep electroencephalogram.
--- NOTE | 2018-04-28 16:37 | CP.PCM.PN ---
Subjective - Date & Time of Evaluation Date of Evaluation: 04/28/18 Time of Evaluation: 16:34 - Subjective Subjective: Hospitalist Service Pt seen and examiend at bedside, pt denies acute events overnight, extremity numbness now localized to hand and forum dorsal aspect. Pt denies seizure change in mental status, visual changes or weakness. Pt had a headache. Pt denies cp sob fc nv. Objective - Vital Signs/Intake and Output Vital Signs (last 24 hours): Temp Pulse Resp BP Pulse Ox 98.5 F 66 20 132/80 97 04/28/18 07:10 04/28/18 07:10 04/28/18 07:10 04/28/18 07:10 04/28/18 07:10 Intake and Output: 04/28/18 04/28/18 06:59 18:59 Intake Total 10 Balance 10 - Medications Medications: Current Medications Acetaminophen (Tylenol 325mg Tab) 650 mg PO Q6 PRN PRN Reason: Pain, Mild (1-3) Last Admin: 04/28/18 12:43 Dose: 650 mg Albendazole (Albenza 200 Mg Tab) 400 mg PO BID [facility]; Protocol Last Admin: 04/28/18 09:30 Dose: 400 mg Aspirin (Aspirin Chewable) 81 mg PO DAILY [facility] Last Admin: 04/28/18 09:31 Dose: 81 mg Clopidogrel Bisulfate (Plavix) 75 mg PO DAILY [facility] Last Admin: 04/28/18 09:31 Dose: 75 mg Dexamethasone (Decadron) 4 mg PO BID [facility] Last Admin: 04/28/18 09:31 Dose: 4 mg Levothyroxine Sodium (Synthroid) 75 mcg PO DAILY@0630 [facility] Last Admin: 04/28/18 06:13 Dose: 75 mcg Lorazepam (Ativan) 1 mg IVP Q6H PRN PRN Reason: Seizure activity Rosuvastatin Calcium (Crestor) 20 mg PO HS [facility] Last Admin: 04/27/18 21:59 Dose: 20 mg - Labs Labs: 04/28/18 06:44 04/28/18 06:44 PT 11.9 SECONDS (9.7-12.2) 04/24/18 18:24 INR 1.1 04/24/18 18:24 APTT 30 SECONDS (21-34) 04/24/18 18:24 - Additional Findings Additional findings: - Head Exam Head Exam: ATRAUMATIC, NORMAL INSPECTION, NORMOCEPHALIC - Eye Exam Eye Exam: EOMI, Normal appearance. absent: Scleral icterus - ENT Exam ENT Exam: Mucous Membranes Moist - Neck Exam Neck Exam: Full ROM, Normal Inspection - Respiratory Exam Respiratory Exam: Clear to Ausculation Bilateral, NORMAL BREATHING PATTERN - Cardiovascular Exam Cardiovascular Exam: RRR, +S1, +S2 - GI/Abdominal Exam GI & Abdominal Exam: Soft. 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 intact bilaterally - Neurological Exam Neurological Exam: Alert, Awake, CN II-XII Intact, Motor Sensory Deficit (sensation diminished over L forarm and dorsum of hand- improving), Oriented x3, Reflexes Normal - Psychiatric Exam Psychiatric exam: Normal Affect, Normal Mood - Skin Skin Exam: Normal Color, Warm Assessment and Plan (1) Neurocysticercosis Status: Acute (2) Stroke Status: Acute - Assessment and Plan (Free Text) Assessment: 57yo Filipino M PMH hypothyroidism, HTN w/ CVA and Neurocystercosis, observing for side effects possible dc tmrw Plan: CVA L Parietal - CXR (04/24): Neg - Head CT (04/24): multiple scattered round calcifications within both cerebral hemispheres. All calcifications are less than 4mm in diameter without edema. - MRI: L parietal stroke as read by Dr Hutchins Neurology sub arachnoid, supretentorial calcifications consistent w/ neurocystercosi - CTA (04/26): mild stenosis of bilateral basilar arteties - Hgb A1c 5.4, Trop neg - Lipid panel: TG 77 Chol 188 LD 104 HDL 69 - ASA 81mg po daily - Plavix 75mg PO qd - Rosuvastatin - NS @100 - Neuro consulted: Dr. Hutchins - recs appreciated - Tylenol 650 given once for headache Neurocystercosis - MRI shows multiple lesions sub arachnoid, supretentorial calcifications c onsistent w/ neurocystercosi - ID Dr Woodall Consulted appreciated recs - dexamethasone 0.1mg/kg qd for 28days, day 2 , then taper - Albendazole 600mg BID - Ativan 1mg q6 PRN for seizures - BC neg 24hrs - f/u lyme titers Hypothyroidism - Synthroid 75 @ 630am daily - 8.75 TSH, free T4 normal Hypertension - controlled via diet and lifestyle - monitor vitals PPx - DVT: Lovenox 40mg sc daily, SCDs - GI: not indicated at this time - Diet: HHD 2g Na Dispo: Pending observation of albedazole side effect of cysterci related seizures/ inflammation. plan for d/c Wed AM
[2018-04-29 03:35] VITALS: RESP 20
[2018-04-29] MEDS: Levothyroxine 75 MCG TAB PO SCH (05:35)
[2018-04-29 07:21] LABS: BASO % 0.1 % (0.0-2.0); HEMOGLOBIN 14.2 g/dL (12.0-18.0); LYMPH # 2.1 K/uL (1.0-4.3); LYMPH % 13.1 % (20.0-40.0); MEAN CELL VOLUME 83.2 fL (80.0-94.0); MEAN CORPUSCULAR HEMOGLOBIN 28.2 pg (27.0-31.0); MEAN CORPUSCULAR HGB CONC 33.8 g/dL (33.0-37.0); MEAN PLATELET VOLUME 10.1 fL (7.2-11.7); MONO # 0.8 K/uL (0.0-0.8); NEUT % 81.8 % (50.0-75.0); RBC 5.06 Mil/uL (4.40-5.90); RED CELL DISTRIBUTION WIDTH 14.1 % (11.5-14.5); WHITE BLOOD COUNT 15.9 K/uL (4.8-10.8)
[2018-04-29 07:51] LABS: ALB/GLOB RATIO 1.2 (1.0-2.1); ALBUMIN 3.8 g/dL (3.5-5.0); ALT/SGPT 23 U/L (21-72); AST/SGOT 18 U/L (17-59); BLOOD UREA NITROGEN 20 mg/dL (9-20); CALCIUM 9.2 mg/dl (8.6-10.4); GFR NON-AFRICAN AMERICAN > 60
--- NOTE | 2018-04-29 14:40 | CP.PCM.DIS ---
Provider - Provider Date of Admission: 04/26/18 13:44 Attending physician: Spencer Chavis MD Consults: 04/24/18 17:31 Stroke Team Consult Stat Comment: Consulting Provider: Neurohospitalist Consulting Physician: NEUROHOSP Neurohospitalist for Consult: Meng Fox Neurohospitalist for Consult: Cheyenne Hutchins Reason for Consult: numbness 04/26/18 13:25 Infectious Disease Consult Routine Comment: Consulting Provider: Pal Woodall Consulting Physician: Pal Woodall Reason for Consult: Neurocystosercosis Time Spent in preparation of Discharge (in minutes): 35 Diagnosis - Discharge Diagnosis (1) Neurocysticercosis Status: Chronic (2) Stroke Status: Acute Hospital Course - Lab Results Lab Results: Micro Results 04/25/18 22:43 Blood-Venous Blood Culture - Preliminary NO GROWTH AFTER 3 DAYS 04/25/18 20:04 Blood-Venous Blood Culture - Preliminary NO GROWTH AFTER 3 DAYS Most Recent Lab Values WBC 15.9 K/uL (4.8-10.8) H 04/29/18 07:09 RBC 5.06 Mil/uL (4.40-5.90) 04/29/18 07:09 Hgb 14.2 g/dL (12.0-18.0) 04/29/18 07:09 Hct 42.1 % (35.0-51.0) 04/29/18 07:09 MCV 83.2 fL (80.0-94.0) 04/29/18 07:09 MCH 28.2 pg (27.0-31.0) 04/29/18 07:09 MCHC 33.8 g/dL (33.0-37.0) 04/29/18 07:09 RDW 14.1 % (11.5-14.5) 04/29/18 07:09 Plt Count 212 K/uL (130-400) 04/29/18 07:09 MPV 10.1 fL (7.2-11.7) 04/29/18 07:09 Neut % (Auto) 81.8 % (50.0-75.0) H 04/29/18 07:09 Lymph % (Auto) 13.1 % (20.0-40.0) L 04/29/18 07:09 [place] % (Auto) 5.0 % (0.0-10.0) 04/29/18 07:09 Eos % (Auto) 0.0 % (0.0-4.0) 04/29/18 07:09 Baso % (Auto) 0.1 % (0.0-2.0) 04/29/18 07:09 Neut # (Auto) 13.0 K/uL (1.8-7.0) H 04/29/18 07:09 Lymph # (Auto) 2.1 K/uL (1.0-4.3) 04/29/18 07:09 [place] # (Auto) 0.8 K/uL (0.0-0.8) 04/29/18 07:09 Eos # (Auto) 0.0 K/uL (0.0-0.7) 04/29/18 07:09 Baso # (Auto) 0.0 K/uL (0.0-0.2) 04/29/18 07:09 Neutrophils % (Manual) 85 % (50-75) H 04/26/18 07:35 Lymphocytes % (Manual) 11 % (20-40) L 04/26/18 07:35 Monocytes % (Manual) 2 % (0-10) 04/26/18 07:35 Eosinophils % (Manual) 2 % (0-4) 04/26/18 07:35 Platelet Estimate Normal (NORMAL) 04/26/18 07:35 PT 11.9 SECONDS (9.7-12.2) 04/24/18 18:24 INR 1.1 04/24/18 18:24 APTT 30 SECONDS (21-34) 04/24/18 18:24 Sodium 137 mmol/L (132-148) 04/29/18 07:09 Potassium 4.2 mmol/L (3.6-5.2) 04/29/18 07:09 Chloride 101 mmol/L (98-107) 04/29/18 07:09 Carbon Dioxide 26 mmol/L (22-30) 04/29/18 07:09 Anion Gap 14 (10-20) 04/29/18 07:09 BUN 20 mg/dL (9-20) 04/29/18 07:09 Creatinine 0.9 mg/dL (0.8-1.5) 04/29/18 07:09 Est GFR ( Amer) > 60 04/29/18 07:09 Est GFR (Non-Af Amer) > 60 04/29/18 07:09 POC Glucose (mg/dL) 84 mg/dL (65-110) 04/24/18 17:05 Random Glucose 117 mg/dL (75-110) H 04/29/18 07:09 Hemoglobin A1c 5.4 % (4.2-6.5) 04/24/18 18:24 Calcium 9.2 mg/dl (8.6-10.4) 04/29/18 07:09 Phosphorus 3.8 mg/dL (2.5-4.5) 04/29/18 07:09 Magnesium 2.0 mg/dL (1.6-2.3) 04/29/18 07:09 Total Bilirubin 0.4 mg/dL (0.2-1.3) 04/29/18 07:09 AST 18 U/L (17-59) 04/29/18 07:09 ALT 23 U/L (21-72) 04/29/18 07:09 Alkaline Phosphatase 64 U/L (38-126) 04/29/18 07:09 Troponin I < 0.0120 ng/mL (0.00-0.120) 04/24/18 18:24 Total Protein 7.1 g/dL (6.3-8.3) 04/29/18 07:09 Albumin 3.8 g/dL (3.5-5.0) 04/29/18 07:09 Globulin 3.2 gm/dL (2.2-3.9) 04/29/18 07:09 Albumin/Globulin Ratio 1.2 (1.0-2.1) 04/29/18 07:09 Triglycerides 77 mg/dL (0-149) 04/24/18 18:24 Cholesterol 188 mg/dL (0-199) 04/24/18 18:24 LDL Cholesterol Direct 104 mg/dL (0-129) 04/24/18 18:24 HDL Cholesterol 69 mg/dL (30-70) 04/24/18 18:24 Vitamin B12 245 pg/mL (239-931) 04/26/18 07:35 Folate 12.2 ng/mL 04/26/18 07:35 Free T4 0.83 ng/dL (0.78-2.19) 04/25/18 06:12 TSH 3rd Generation 8.75 mIU/L (0.46-4.68) H 04/25/18 06:12 RPR Nonreactive (NONREACTIVE) 04/26/18 11:36 Lyme Disease Screen <0.90 index 04/25/18 13:20 HIV 1&2 Antibody Screen Negative (NEGATIVE) 04/25/18 13:20 Blood Type O POSITIVE 04/24/18 18:24 Antibody Screen Negative 04/24/18 18:24 - Hospital Course Hospital Course: On admission: Mr. Kemal Barragan is a 57 year old [place] male PMH hypothyroidism, hypertension comes in today for ascending numbness and loss of sensation in his right arm. He first noticed numbness in his right hand at 8pm last night. Over the next few hours, it ascended up his arm, over his shoulder, behind his ear, ending at the crown of his head. He went to sleep as usual at midnight and slept normally. He woke up as normal at 7 in the morning, and noticed that the numbness had not gone away. 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 During work, he could feel the temperature of the water, but over time, noticed he was progressively less able to feel the weight and shape of the dishes. At no time did he feel a motor deficit nor was at risk of dropping the dishes. He immediately came to the hospital after finishing work. Currently, he cannot feel when others touch his right hand or forearm, but feels electric shocks when he touches it himself with his left. The numbness has not changed since he woke up this morning. He does admit to dry mouth with a bitter taste, but attributes that to no eating anything since this morning's breakfast. He last saw his PMD, Dr. Lamb, 3 months ago when he broke out in hives on his back. He was given an unknown medication and does not know the results of his allergy panel. His is also constantly sick, last sick 3 weeks ago with an URI. Denies fever, chills, blurry vision, double vision, headache, weakness, fatigue, chest pain, shortness of breath, nausea, vomiting, constipation, diarrhea. Hospital course: Neurology, Dr. Fox, was consulted who recommended stroke work up as well as raising the concern for neurocystercosis due to multuple calcified lesions noted on head CT. MRI redemonstrated the calcified lesions, as well as left parietal infarct. Pt was started on DAP with ASA and plavix, as well as a statin. Dr. Woodall, Infectious disease, was consulted due to neurocystercosis. Seizure precautions were taken. Pt was started on dexamethasone and abendazole for the neurocystercosis. Pt did not have any seizure activities during his admission. His numbness and tingling resolved gradually improved. His EEG was normal. Imaging: Head CT (04/24): multiple scattered round calcifications within both cerebral hemispheres. All calcifications are less than 4mm in diameter without edema. MRI shows multiple lesions sub arachnoid, supretentorial calcifications consistent w/ neurocystercosi. This is a summary of the hospital course, please see EMR for full details. Discharge Exam - Head Exam Head Exam: ATRAUMATIC, NORMAL INSPECTION, NORMOCEPHALIC - Eye Exam Eye Exam: EOMI, Normal appearance, PERRL - ENT Exam ENT Exam: Mucous Membranes Moist - Respiratory Exam Respiratory Exam: Clear to PA & Lateral, UNREMARKABLE - Cardiovascular Exam Cardiovascular Exam: REGULAR RHYTHM, +S1, +S2 - GI/Abdominal Exam GI & Abdominal Exam: Normal Bowel Sounds, Soft, Unremarkable - Extremities Exam Additional comments: no calf tenderness, no edema. - Neurological Exam Neurological exam: Alert, CN II-XII Intact, Normal Gait, Oriented x3 Additional comments: 5/5 strength in upper and lower bilateral extremities sensation intact in bilateral upper and lower sensory dermatomes - Psychiatric Exam Psychiatric exam: Normal Affect, Normal Mood - Skin Skin Exam: Dry, Normal Color, Warm Discharge Plan - Discharge Medications Prescriptions: Albendazole [Albenza 200 mg Tab] 600 mg PO BID #20 tab Albendazole [Albenza 200 mg Tab] 400 mg PO BID #16 tab Aspirin [Aspirin Chewable] 81 mg PO DAILY #14 chew Clopidogrel [Plavix] 75 mg PO DAILY #14 tab Levothyroxine [Synthroid] 75 mcg PO DAILY #30 tab Methylprednisolone [Medrol Dose Pack (21 tabs)] 4 mg PO DAILY #21 mg Rosuvastatin Calcium [Crestor] 20 mg PO HS 14 Days #14 tab - Follow Up Plan Condition: GOOD Disposition: HOME/ ROUTINE Instructions: Heart Healthy Diet, Quitting Smoking for Older Adults, Smoking: Not Just Harmful to Your Lungs and Heart, Stroke (DC), Albendazole, Aspirin, Clopidogrel, Levothyroxine, Methylprednisolone, Rosuvastatin Additional Instructions: Pt is to be discharged home with the following instructions Please follow up with your PMD Dr Javad Lamb within one week Please follow up with Dr Cherise Hutchins, Neurology within one week of discharge Please follow up with [facility] at [address] [place] [address] [address] The [address] on WednesdayMay 02 for follow up of neurocystercosis and for thyroid follow up Please take the following medications as prescribed Albendazole 400mg twice a day by mouth at 8am and 8pm #16 Levothyroxine 125mcg by mouth daily at 8am #30 Aspirin 81mg by mouth daily at 8am #14 Plavix 75mg by mouth daily at 8am #14 Rosuvastatin 20 mg by mouth every night at 8pm #14 Medrol dose pack Pt debe ser dado de jeana a casa con las siguientes instrucciones Por favor irene un seguimiento con irving PMD Dr. Farnsworth Bijal dentro de morgan semana Por favor irene un seguimiento con el Dr. Cherise Hutchins, Neurologa dentro de morgan semana despus del jeana Por favor, siga con [facility] en [address] [place] [address] [address] el lunes 3 de diciembre para el seguimiento de la neurocistercosis y para el seguimiento de la tiroides Por favor, tome los siguientes medicamentos segn lo prescrito Albendazol 400 mg dos veces al da por va oral a las 8 am y las 8 pm # 16 Levothyroxine 125 mcg por va oral todos los houser a las 8 am # 30 Aspirina 81 mg por va oral todos los houser a las 8 am # 14 Plavix 75 mg por va oral todos los houser a las 8 am # 14 Rosuvastatina 20 mg por va oral todas las noches a las 8 p.m. n. 14 Paquete de dosis Medrol Referrals: [facility] at [facility] [Outside] Meng Fox MD [Staff Provider] - Javad Lamb MD [Staff Provider] - Pal Woodall MD [Staff Provider] -
[2018-04-29 16:35] VITALS: BP 129/65; PULSE 74; TEMP 87.9
--- NOTE | 2018-05-02 11:25 | CARD ---
APPROVED REPORT Date of service: 04/27/2018 EXAM: LIMITED Two-dimensional echocardiogram with bubbles. Other Information Quality : GoodRhythm : INDICATION Left Posterior Superior Pariatel Cortex Infarct Mitral Valve E/A ratio0.0 TDI E/Lateral E'0.0E/Medial E'0.0 <Conclusion> Limited study right to left shunt with an interatyrial septal defect likeely patent foramen ovale
[2018-05-02 12:51] VITALS: O2SAT 99
== END 2018-04-29 18:41 | disposition home or self-care (01) | DRG 248 ==
LOC: C.ER 16:44 → C.9E 19:43 → C.6T 04-25 14:46 → OBSVTOIN 04-26 13:44
PROVIDERS: ADMIT Family Medicine; ATTEND Family Medicine
DX: B69.0 Cysticercosis of central nervous system (principal); I63.9 Cerebral infarction, unspecified; I10 Essential (primary) hypertension; E03.9 Hypothyroidism, unspecified; F17.210 Nicotine dependence, cigarettes, uncomplicated; Z79.02 Long term (current) use of antithrombotics/antiplatelets; Z79.82 Long term (current) use of aspirin; Z79.890 Hormone replacement therapy; Z86.73 Personal history of transient ischemic attack (TIA), and cerebral infarction without residual deficits

== ENCOUNTER 2018-06-06 08:47 | Outpatient (CLI) | payer SELFPAY | END 2018-06-06 08:48 | disposition home or self-care (01) | LOC: C.CTH 08:47 | DX: L72.3 Sebaceous cyst (principal) ==

== ENCOUNTER 2018-09-09 19:54 | Observation (INO) | payer SELFPAY ==
[2018-09-09] MEDS ORDERED: Iodixanol 320 MG/ML 100 ML BOTTLE IV ONE (20:45)
--- NOTE | 2018-09-09 20:49 | C.PDOC ---
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 Patient arrived to the ED at 20:30. Patient's reports patient had similar episode with his right arm 4 months ago. Patient also c/o mild headache. Patient denies fever, chills, visual changes, neck pain, CP, SOB, palpitations, rash, injury, fall, trauma. Time Seen by Provider: 09/09/18 20:47 Chief Complaint (Nursing): Weakness/Neurological Deficit History Per: Patient, Family History/Exam Limitations: no limitations Onset/Duration Of Symptoms: Hrs (1), Sudden Onset Current Symptoms Are (Timing): Still Present Associated Symptoms Preceding Syncopal Episode: No Predromal Symptoms (Sudden Onset) Seizure Or Post-ictal Symptoms: None Fall Associated With With Symptoms: No Recent travel outside of the [place]: No Additional History Per: Patient - Symptoms Of CVA Character Of Deficits: Left: Weakness, Arm: Weakness Recent Aspirin Use: No Current Coumadin Use?: No Recent Head Trauma: No Past Medical History Reviewed: Historical Data, Nursing Documentation, Vital Signs Vital Signs: Last Vital Signs Temp 98.4 F 09/09/18 20:23 Pulse 75 09/09/18 20:23 Resp 20 09/09/18 20:23 BP 160/83 H 09/09/18 20:23 Pulse Ox 99 09/09/18 20:23 - Medical History PMH: HTN, Hypercholesterolemia, Hypothyroidism Surgical History: No Surg Hx Family History: States: Unknown Family Hx - Social History Hx Tobacco Use: No Hx Alcohol Use: No Hx Substance Use: No - Immunization History Hx Tetanus Toxoid Vaccination: Yes Hx Influenza Vaccination: No Hx Pneumococcal Vaccination: No Review Of Systems Constitutional: Negative for: Fever, Chills Eyes: Negative for: Vision Change Cardiovascular: Negative for: Chest Pain, Palpitations Respiratory: Negative for: Shortness of Breath Gastrointestinal: Negative for: Nausea, Vomiting, Abdominal Pain Musculoskeletal: Negative for: Neck Pain Neurological: Positive for: Weakness, Numbness, Headache. Negative for: Dizziness Physical Exam - Physical Exam Appears: Non-toxic, No Acute Distress, Other (anxious, male) Skin: Normal Color, Warm, Dry Head: Atraumatic, Normacephalic Eye(s): bilateral: Normal Inspection, PERRL, EOMI Oral Mucosa: Moist Neck: Normal ROM, Supple Chest: Symmetrical Cardiovascular: Rhythm Regular Respiratory: Normal Breath Sounds, No Rales, No Rhonchi, No Wheezing Gastrointestinal/Abdominal: Soft, No Tenderness, No Guarding, No Rebound Extremity: Capillary Refill (< 2 seconds) Extremity: Right: Other (3/5 left arm strength, 5/5 right arm, right leg and left leg), Bilateral: Atraumatic, Normal Color And Temperature Neurological/Psych: Oriented x3, Normal Speech, Normal Cognition Gait: Steady ED Course And Treatment - Laboratory Results Result Diagrams: 09/09/18 20:47 09/09/18 20:47 O2 Sat by Pulse Oximetry: 99 (ON RA) Pulse Ox Interpretation: Normal - CT Scan/US CT head Other Rad Studies (CT/US): Read By Radiologist, Radiology Report Reviewed CT/US Interpretation: EXAM: CT Head without Intravenous Contrast. CLINICAL HISTORY: Rule out stroke. Neurocysticercosis. TECHNIQUE: Axial computed tomography images of the head/brain without intravenous contrast. 941.47 mGy- cm. COMPARISON: 04.24.18 report. FINDINGS: BRAIN. Multiple scattered round calcifications within both cerebral hemispheres. All calcifications are less than 4 mm in diameter. No midline shift. No discernible mass effect. VENTRICLES: No hydrocephalus. ORBITS: The orbits are unremarkable. SINUSES AND MASTOIDS: The paranasal sinuses and mastoid air cells are clear. BONES: No fracture. SOFT TISSUES: Unremarkable. MISCELLANEOUS: These calcifications do not have any surrounding edema. No vascular territorial edema. Consider neurocysticercosis, toxoplasmosis, and TORCH infection. IMPRESSION: 1. Multiple scattered round calcifications within both cerebral hemispheres. 2. No interval change. 3. No acute pathology. . Electronically signed on Sep 09, 2018 8:56:45 PM EDT by: Eh Khanna M.D., LUIZA Certified By ABR & CBCCT. Fellowship Trained MRI and CT Specialist CTA head/neck Other Rad Studies (CT/US): Read By Radiologist, Radiology Report Reviewed CT/US Interpretation: EXAM: CTA Head and Neck with Intravenous Contrast. CLINICAL HISTORY: Code stroke. TECHNIQUE: Axial CTA images of the head and neck performed with intravenous contrast. MIP reconstructed images were created and reviewed. 0.00 mGy-cm. CONTRAST: With; 100MLS VISI 320 was injected intravenously without incident. COMPARISON: Comparison is made to CT of the brain performed earlier the same date. FINDINGS: VASCULATURE: NECK: COMMON CAROTID ARTERIES. No significant canal stenosis. No dissection or occlusion. EXTERNAL CAROTID ARTERIES. Patent. NECK: SOFT TISSUES: Immediately anterior to the thyroid gland in the anterior neck; there is demonstration of an approximately 5.2 x 5.5 x 5.1 cm thin-walled, smooth, well-defined homogeneous fluid collection thought compatible with a thyroglossal duct cyst remnant. INTERNAL CAROTID ARTERIES. No stenosis by NASCET criteria. No dissection or occlusion. VERTEBRAL ARTERIES. No significant canal stenosis. No dissection or occlusion. The right vertebral artery is the dominant of the two.. HEAD: ANTERIOR CEREBRAL ARTERIES. No significant stenosis. No occlusion. No aneurysm. MIDDLE CEREBRAL ARTERIES. No significant stenosis. No occlusion. No aneurysm. POSTERIOR CEREBRAL ARTERIES. No significant stenosis. No occlusion. No aneurys m. BASILAR ARTERY. No significant stenosis. No occlusion. No aneurysm. OTHER: SOFT TISSUES. No acute finding. BONES. No acute osseous abnormality. Very minimal degenerative arthritis noted within the atlantodens interval. IMPRESSION: 1. 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 2. Unremarkable CTA of the head and neck otherwise. . Electronically signed on Sep 09, 2018 9:39:18 PM EDT by: Eh Khanna M.D., LUIZA Certified By ABR & CBCCT. Fellowship Trained MRI and CT Specialist. NIHSS Stroke Scale 2 - Date/Time Evaluation Performed Date Performed: 09/09/18 Medical Decision Making Medical Decision Making: Plan: * CT head * CTA head/neck * LAbs * EKG * CXR Disposition - Disposition Forms: [employer] (Persian) - Scribe Statement The provider has reviewed the documentation as recorded by the Scribe Guillermo Martinez All medical record entries made by the Scribe were at my direction and personally dictated by me. I have reviewed the chart and agree that the record accurately reflects my personal performance of the history, physical exam, medical decision making, and the department course for this patient. I have also personally directed, reviewed, and agree with the discharge instructions and dis position.
[2018-09-09 21:01] LABS: BASO # 0.1 K/uL (0.0-0.2); BASO % 0.5 % (0.0-2.0); EOS # 0.8 K/uL (0.0-0.7); EOS % 7.4 % (0.0-4.0); HEMOGLOBIN 14.3 g/dL (12.0-18.0); INR 1.1; LYMPH # 3.2 K/uL (1.0-4.3); LYMPH % 30.4 % (20.0-40.0); MEAN CORPUSCULAR HEMOGLOBIN 27.2 pg (27.0-31.0); MEAN CORPUSCULAR HGB CONC 33.7 g/dL (33.0-37.0); MEAN PLATELET VOLUME 9.4 fL (7.2-11.7); MONO # 0.6 K/uL (0.0-0.8); MONO % 5.5 % (0.0-10.0); NEUT # 5.9 K/uL (1.8-7.0); NEUT % 56.2 % (50.0-75.0); NRBC % 0.1 % (0.0-2.0); PROTHROMBIN TIME 11.9 SECONDS (9.7-12.2); RBC 5.27 Mil/uL (4.40-5.90); RED CELL DISTRIBUTION WIDTH 13.6 % (11.5-14.5); WHITE BLOOD COUNT 10.6 K/uL (4.8-10.8)
[2018-09-09 21:02] LABS: MEAN CELL VOLUME 80.7 fL (80.0-94.0)
[2018-09-09 21:06] LABS: ALB/GLOB RATIO 1.4 (1.0-2.1); ALBUMIN 4.4 g/dL (3.5-5.0); ALT/SGPT 23 U/L (21-72); AST/SGOT 39 U/L (17-59); BLOOD UREA NITROGEN 19 mg/dL (9-20); CALCIUM 9.6 mg/dl (8.6-10.4); GFR NON-AFRICAN AMERICAN > 60; HDL CHOLESTEROL 60 mg/dL (30-70)
[2018-09-09 21:17] LABS: LDL CHOLESTEROL 103 mg/dL (0-129)
[2018-09-09] MEDS ORDERED: Aspirin 325 mg EC Tablets PO STA (21:56)
--- NOTE | 2018-09-09 22:00 | C.PDOC ---
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 Patient arrived to the ED at 20:30. Patient's reports patient had similar episode with his right arm 4 months ago. Patient also c/o mild headache. Patient denies fever, chills, visual changes, neck pain, CP, SOB, palpitations, rash, injury, fall, trauma. Time Seen by Provider: 09/09/18 20:47 Chief Complaint (Nursing): Weakness/Neurological Deficit History Per: Patient, Family History/Exam Limitations: None Onset/Duration Of Symptoms: Hrs Current Symptoms Are (Timing): Still Present Usual Baseline: Alert Oriented Exacerbating Factor(s): Unknown Use Of Anticoag/Antiplatelets: No Character Of Deficits: Left: Weakness, Arm: Weakness Speech Is: Normal Severity: None Recent travel outside of the [place]: No Additional History Per: Patient, Family Past Medical History Reviewed: Historical Data, Nursing Documentation, Vital Signs Vital Signs: Last Vital Signs Temp 98.4 F 09/09/18 20:23 Pulse 72 09/09/18 21:05 Resp 14 09/09/18 21:05 BP 151/89 H 09/09/18 21:05 Pulse Ox 99 09/09/18 21:40 - Medical History PMH: HTN, Hypercholesterolemia, Hypothyroidism Surgical History: No Surg Hx Family History: States: Unknown Family Hx - Social History Hx Tobacco Use: No Hx Alcohol Use: No Hx Substance Use: No - Immunization History Hx Tetanus Toxoid Vaccination: Yes Hx Influenza Vaccination: No Hx Pneumococcal Vaccination: No Review Of Systems Constitutional: Negative for: Fever, Chills Eyes: Negative for: Vision Change Cardiovascular: Negative for: Chest Pain Respiratory: Negative for: Shortness of Breath Gastrointestinal: Negative for: Nausea, Vomiting, Abdominal Pain Skin: Negative for: Rash Neurological: Positive for: Weakness, Numbness. Negative for: Headache, Dizziness Physical Exam - Physical Exam Appears: Non-toxic, No Acute Distress Skin: Normal Color, Warm, Dry Head: Atraumatic, Normacephalic Eye(s): bilateral: Normal Inspection, PERRL, EOMI Oral Mucosa: Moist Neck: Normal ROM, Supple Chest: Symmetrical Cardiovascular: Rhythm Regular Respiratory: Normal Breath Sounds, No Rales, No Rhonchi, No Wheezing Gastrointestinal/Abdominal: Soft, No Tenderness, No Guarding, Rebound Back: No Vertebral Tenderness Extremity: Capillary Refill (< 2 seconds) Extremity: Left: Other (3/5 left arm strength, 5/5 right arm, right leg and left leg), Right: Other, Bilateral: Atraumatic, Normal Color And Temperature Pulses: Left Dorsalis Pedis: Decreased, Right Dorsalis Pedis: Decreased Neurological/Psych: Oriented x3, Normal Speech, Normal Cognition Gait: Steady ED Course And Treatment - Laboratory Results Result Diagrams: 09/09/18 20:47 09/09/18 20:47 Lab Results: PT 11.9 SECONDS (9.7-12.2) 09/09/18 20:47 INR 1.1 09/09/18 20:47 APTT 32 SECONDS (21-34) 09/09/18 20:47 Troponin I < 0.0120 ng/mL (0.00-0.120) 09/09/18 20:47 Total Bilirubin 0.5 mg/dL (0.2-1.3) 09/09/18 20:47 AST 39 U/L (17-59) 09/09/18 20:47 ALT 23 U/L (21-72) 09/09/18 20:47 Alkaline Phosphatase 78 U/L (38-126) 09/09/18 20:47 Total Protein 7.5 g/dL (6.3-8.3) 09/09/18 20:47 Albumin 4.4 g/dL (3.5-5.0) 09/09/18 20:47 Globulin 3.2 gm/dL (2.2-3.9) 09/09/18 20:47 Albumin/Globulin Ratio 1.4 (1.0-2.1) 09/09/18 20:47 O2 Sat by Pulse Oximetry: 99 (ON RA) Pulse Ox Interpretation: Normal - CT Scan/US CT head Other Rad Studies (CT/US): Read By Radiologist, Radiology Report Reviewed CT/US Interpretation: EXAM: CT Head without Intravenous Contrast. CLINICAL HISTORY: Rule out stroke. Neurocysticercosis. TECHNIQUE: Axial computed tomography images of the head/brain without intravenous contrast. 941.47 mGy- cm. COMPARISON: 04.24.18 report. FINDINGS: BRAIN. Multiple scattered round calcifications within both cerebral hemispheres. All calcifications are less than 4 mm in diameter. No midline shift. No discernible mass effect. VENTRICLES: No hydrocephalus. ORBITS: The orbits are unremarkable. SINUSES AND MASTOIDS: The paranasal sinuses and mastoid air cells are clear. BONES: No fracture. SOFT TISSUES: Unremarkable. MISCELLANEOUS: These calcifications do not have any surrounding edema. No vascular territorial edema. Consider neurocysticercosis, toxoplasmosis, and TORCH infection. IMPRESSION: 1. Multiple scattered round calcifications within both cerebral hemispheres. 2. No interval change. 3. No acute pathology. . Electronically signed on Sep 09, 2018 8:56:45 PM EDT by: Eh Khanna M.D., LUIZA Certified By ABR & CBCCT. Fellowship Trained MRI and CT Specialist CTA head/neck Other Rad Studies (CT/US): Read By Radiologist, Radiology Report Reviewed CT/US Interpretation: EXAM: CTA Head and Neck with Intravenous Contrast. CLINICAL HISTORY: Code stroke. TECHNIQUE: Axial CTA images of the head and neck performed with intravenous contrast. MIP reconstructed images were created and reviewed. 0.00 mGy-cm. CONTRAST: With; 100MLS VISI 320 was injected intravenously without incident. COMPARISON: Comparison is made to CT of the brain performed earlier the same date. FINDINGS: VASCULATURE: NECK: COMMON CAROTID ARTERIES. No significant canal stenosis. No dissection or occlusion. EXTERNAL CAROTID ARTERIES. Patent. NECK: SOFT TISSUES: Immediately anterior to the thyroid gland in the anterior neck; there is demonstration of an approximately 5.2 x 5.5 x 5.1 cm thin-walled, smooth, well-defined homogeneous fluid collection thought compatible with a thyroglossal duct cyst remnant. INTERNAL CAROTID ARTERIES. No stenosis by NASCET criteria. No dissection or occlusion. VERTEBRAL ARTERIES. No significant canal stenosis. No dissection or occlusion. The right vertebral artery is the dominant of the two.. HEAD: ANTERIOR CEREBRAL ARTERIES. No significant stenosis. No occlusion. No aneurysm. MIDDLE CEREBRAL ARTERIES. No significant stenosis. No occlusion. No aneurysm. POSTERIOR CEREBRAL ARTERIES. No significant stenosis. No occlusion. No aneurysm. BASILAR ARTERY. No significant stenosis. No occlusion. No aneurysm. OTHER: SOFT TISSUES. No acute finding. BONES. No acute osseous abnormality. Very minimal degenerative arthritis noted within the atlantodens interval. IMPRESSION: 1. 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 2. Unremarkable CTA of the head and neck otherwise. . Electronically signed on Sep 09, 2018 9:39:18 PM EDT by: Eh Khanna M.D., MBA Certified By ABR & CBCCT. Fellowship Trained MRI and CT Specialist. NIHSS Stroke Scale 2 - Date/Time Evaluation Performed Date Performed: 09/09/18 Time Performed: 20:30 When Was NIHSS Performed: Code Stroke - How Severe is the Stroke Level of Consciousness: 0=Alert LOC to Questions: 0=Both comments correct LOC to commands: 0=Obeys both correctly Best Gaze: 0=Normal Visual: 0=No visual loss Facial: 0=Normal Motor Arm - Left: 2=Falls before 10 sec Motor Arm - Right: 0=No drift Motor Leg - Left: 0=No drift Motor Leg - Right: 0=No drift Limb Ataxia: 0=Absent Sensory: 0=Normal Best Language: 0=No aphasia Dysarthia: 0=Normal articulation Extinction & Inattention (Neglect): 0=Normal, no object Score: 2 rTPA Inclusion/Exclusion - Refusal of Treatment Patient Refused Treatment: No - Inclusion Criteria for Altepase All of the below criteria for inclusion were reviewed: No - Exclusion Criteria for Altepase Current Intracranial Hemorrhage: No Subarachnoid hemorrhage: No Active Internal Bleeding: No Recent (within 3 months) Intracranial or Intraspinal Surgery: No Presence of intracranial conditions that may increase bleed: Other (calcified nodules) Current Severe Uncontrolled Hypertension: No - Warning to TPA With Conditions Following Conditions Weighed Against Anticipated Benefit: No Medical Decision Making Medical Decision Making: Plan: * CT head * CTA head/neck * EKG * Lab * CXR * aspirin 325 mg PO Patient arrived at 20:30 Code stroke called 20:35 2245: d/w Dr. Hutchins- Neuro Plastics Patternmaker ok to Consult, will eval in AM Consider MRI Brain w/wo for ? new neurocystosarcosis lesions 2250: d/w Dr. Peck, Hospitalist- ok to admit. Disposition Doctor Will See Patient In The: Hospital Counseled Patient/Family Regarding: Studies Performed, Diagnosis - Disposition Disposition: HOSPITALIZED Disposition Time: 22:50 Condition: GOOD Forms: [facility] (Kenyan) - Clinical Impression Clinical Impression: Weakness of limb - Scribe Statement The provider has reviewed the documentation as recorded by the Scribe Guillermo Martinez All medical record entries made by the Scribe were at my direction and personally dictated by me. I have reviewed the chart and agree that the record accurately reflects my personal performance of the history, physical exam, [facility] decision making, and the department course for this patient. I have also personally directed, reviewed, and agree with the discharge instructions and disposition.
--- NOTE | 2018-09-09 23:51 | CP.PCM.HP ---
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 Patient states he had a similar episode a few months ago, when he felt same symptoms in his right arm and right side of face and head. 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 Patient states this time he could not rise his left arm and was not able to keep arm still. Patient admits to feeling dizziness and sweating, and mild headaches, as well as bitter taste in his mouth. Patient denies weakness in lower extremities, falls or LOC. Denies vision or hearing loss, changes in speech or difficulty swallowing foods or liquids. Patient denies fever, chills, chest pain, sob, n/v/d/c or urinary symptoms. PMD: [facility] PMH: neurocystercosis, hypothyroidism, hypertension, hyperlipidemia Med: ASA 81 mg PO daily, levothyroxine 75mcg PO QD, Crestor 20 mg PO HS All: wheat, egg whites, seafood PSxHx: denies FamHx: HTN and thyroid (mother) SocHx: 1 cigarette/week, former smoker 1 pack/week, social EtOH, denies illicit drug use. Lives in a house and 3 kids. 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 Proxy: Deborah Jacobs () [phone] Present on Admission - Present on Admission Any Indicators Present on Admission: No Review of Systems - Review of Systems All systems: reviewed and no additional remarkable complaints except Review of Systems: as stated in HPI Past Patient History - Past Social History Smoking Status: Former Smoker - CARDIAC Hx Hypercholesterolemia: Yes Hx Hypertension: Yes - ENDOCRINE/METABOLIC Hx Hypothyroidism: Yes - MUSCULOSKELETAL/RHEUMATOLOGICAL Hx Falls: No - PSYCHIATRIC Hx Substance Use: No - SURGICAL HISTORY Hx Surgeries: No - ANESTHESIA Hx Anesthesia: No Meds Allergies/Adverse Reactions: Allergies Allergy/AdvReac Type Severity Reaction Status Date / Time No Known Allergies Allergy Verified 09/09/18 20:37 Physical Exam - Constitutional Appears: Non-toxic, No Acute Distress - Head Exam Head Exam: ATRAUMATIC, NORMOCEPHALIC - Eye Exam Eye Exam: EOMI, Normal appearance, PERRL Pupil Exam: NORMAL ACCOMODATION, PERRL - ENT Exam ENT Exam: Mucous Membranes Moist, Normal Exam - Neck Exam Neck exam: Positive for: Thyromegaly. Negative for: Lymphadenopathy, Tenderness - Respiratory Exam Respiratory Exam: Clear to Auscultation Bilateral, NORMAL BREATHING PATTERN. absent: Rales, Rhonchi, Wheezes - Cardiovascular Exam Cardiovascular Exam: REGULAR RHYTHM, +S1, +S2 - GI/Abdominal Exam GI & Abdominal Exam: Normal Bowel Sounds, Soft. absent: Distended, Tenderness - Extremities Exam Extremities exam: Positive for: full ROM, normal inspection. Negative for: tenderness - Back Exam Back exam: NORMAL INSPECTION. absent: tenderness - Neurological Exam Neurological exam: Alert, CN II-XII Intact, Oriented x3 - Expanded Neurological Exam Expanded Patient oriented to: person, place, time Cranial nerves: EOM's Intact: Normal, Facial Palsey w/Forehead Movement: Normal, Facial Palsey w/o Forehead Movement: Normal, Facial Sensation: Normal, Tongue Deviation: Normal Cerebellar Function: Finger to Nose: Normal, Romberg: Normal Upper motor neuron: Pronator Drift: Normal Sensory exam: Lower Extremity Light Touch: Normal, Upper Extremity Light Touch: Normal Neuro motor strength exam: Left Upper Extremity: 4, Right Upper Extremity: 5, Left Lower Extremity: 5, Right Lower Extremity: 5 DTR: Patellar Left: 1+, Patellar Right: 2+ - Psychiatric Exam Psychiatric exam: Normal Affect, Normal Mood - Skin Skin Exam: Dry, Intact, Normal Color, Warm Results - Vital Signs Recent Vital Signs: Last Vital Signs Temp 98.2 F 09/09/18 23:10 Pulse 60 09/09/18 23:10 Resp 16 09/09/18 23:10 BP 131/74 09/09/18 23:10 Pulse Ox 97 09/09/18 23:10 - Labs Result Diagrams: 09/09/18 20:47 09/09/18 20:47 Labs: Laboratory Results - last 24 hr 09/09/18 09/09/18 09/09/18 20:34 20:47 20:47 WBC 10.6 RBC 5.27 Hgb 14.3 Hct 42.6 MCV 80.7 D MCH 27.2 MCHC 33.7 RDW 13.6 Plt Count 214 MPV 9.4 Neut % (Auto) 56.2 Lymph % (Auto) 30.4 Sandoval % (Auto) 5.5 Eos % (Auto) 7.4 H Baso % (Auto) 0.5 Neut # (Auto) 5.9 Lymph # (Auto) 3.2 Sandoval # (Auto) 0.6 Eos # (Auto) 0.8 H Baso # (Auto) 0.1 PT 11.9 INR 1.1 APTT 32 Sodium Potassium Chloride Carbon Dioxide Anion Gap BUN Creatinine Est GFR ( Amer) Est GFR (Non-Af Amer) POC Glucose (mg/dL) 121 H Random Glucose Hemoglobin A1c Calcium Total Bilirubin AST ALT Alkaline Phosphatase Troponin I Total Protein Albumin Globulin Albumin/Globulin Ratio Triglycerides Cholesterol LDL Cholesterol Direct HDL Cholesterol Blood Type Antibody Screen 09/09/18 09/09/18 09/09/18 20:47 20:47 20:47 WBC RBC Hgb Hct MCV MCH MCHC RDW Plt Count MPV Neut % (Auto) Lymph % (Auto) Sandoval % (Auto) Eos % (Auto) Baso % (Auto) Neut # (Auto) Lymph # (Auto) Sandoval # (Auto) Eos # (Auto) Baso # (Auto) PT INR APTT Sodium 138 Potassium 4.4 Chloride 103 Carbon Dioxide 28 Anion Gap 12 BUN 19 Creatinine 0.9 Est GFR ( Amer) > 60 Est GFR (Non-Af Amer) > 60 POC Glucose (mg/dL) Random Glucose 117 H Hemoglobin A1c 5.7 Calcium 9.6 Total Bilirubin 0.5 AST 39 ALT 23 Alkaline Phosphatase 78 Troponin I < 0.0120 Total Protein 7.5 Albumin 4.4 Globulin 3.2 Albumin/Globulin Ratio 1.4 Triglycerides 107 D Cholesterol 174 LDL Cholesterol Direct 103 HDL Cholesterol 60 Blood Type O POSITIVE Antibody Screen Negative Assessment & Plan - Assessment and Plan (Free Text) Assessment: Patient is a 57 year old male with pmhx of cysticercosis, hypothyroidism, Hyperlipidemia and HTN, came to the ED for new onset numbness and weakness of left side of arm extending to left side of neck, face and head. Code stroke called in ED. CT Head, CTA head and neck shows Multiple scattered round calcifications within both cerebral hemisphere with no surrounding edema , pending official results, Neuro on board, pending brain MRI w and w/o contrast Plan: Left Upper ext weakness/numbness CODE stroke hx of cysticercosis, left parietal CVA (03/2018) - EKG - NSR - CXR - pending result - previous imagining - Head CT (04/24): multiple scattered round calcifications within both cerebral hemispheres. All calcifications are less than 4mm in diameter without edema. MRI (04/25): multiple lesions sub arachnoid, supretentorial calcifications consistent w/ neurocystercosi. - Head CT - prelim read - Multiple scattered round calcifications within both cerebral hemisphere with no surrounding edema, pending official read - Head and neck CTA - prelim read - unremarkable , pending official read - MRI brain W and W/O contrast - f/u results - ASA 325 PO given in ER - Continue ASA 81 mg PO QD - Neuro consulted: Dr. Hutchins - recshanta appreciated Hypothyroidism - last admission 03/2018 - TSH 8.3, T4 0.83 - f/u TSH, free t4 - Continue levothyroxine 75mcg PO QD Hyperlipidemia - last admission 03/2018 - TG 77 Chol 188 LD 104 HDL 69 - f/u lipid panel - continue Crestor 20mg PO QHS Hypertension - elevated Blood pressure in ED 151/82 - repeat bp at 137/84 - does not take medication - Monitor BP PPx - DVT: SCDS, hold AC until CT official results - GI: not indicated at this time - Diet: HHD 2g Na, low/fat low cholesterol Plan discussed with Dr Liv Roe, PGY-1 - Date & Time Date: 09/10/18 Time: 23:35 <[place] - Last Filed: 09/10/18 06:29> Results - Vital Signs Recent Vital Signs: Last Vital Signs Temp 98.6 F 09/10/18 06:00 Pulse 67 09/10/18 06:00 Resp 18 09/10/18 06:00 BP 126/79 09/10/18 06:00 Pulse Ox 96 09/10/18 06:00 - Labs Result Diagrams: 09/09/18 20:47 09/09/18 20:47 Labs: Laboratory Results - last 24 hr 09/09/18 09/09/18 09/09/18 20:34 20:47 20:47 WBC 10.6 RBC 5.27 Hgb 14.3 Hct 42.6 MCV 80.7 D MCH 27.2 MCHC 33.7 RDW 13.6 Plt Count 214 MPV 9.4 Neut % (Auto) 56.2 Lymph % (Auto) 30.4 Sandoval % (Auto) 5.5 Eos % (Auto) 7.4 H Baso % (Auto) 0.5 Neut # (Auto) 5.9 Lymph # (Auto) 3.2 Sandoval # (Auto) 0.6 Eos # (Auto) 0.8 H Baso # (Auto) 0.1 PT 11.9 INR 1.1 APTT 32 Sodium Potassium Chloride Carbon Dioxide Anion Gap BUN Creatinine Est GFR ( Amer) Est GFR (Non-Af Amer) POC Glucose (mg/dL) 121 H Random Glucose Hemoglobin A1c Calcium Total Bilirubin AST ALT Alkaline Phosphatase Troponin I Total Protein Albumin Globulin Albumin/Globulin Ratio Triglycerides Cholesterol LDL Cholesterol Direct HDL Cholesterol Blood Type Antibody Screen 09/09/18 09/09/18 09/09/18 20:47 20:47 20:47 WBC RBC Hgb Hct MCV MCH MCHC RDW Plt Count MPV Neut % (Auto) Lymph % (Auto) Sandoval % (Auto) Eos % (Auto) Baso % (Auto) Neut # (Auto) Lymph # (Auto) Sandoval # (Auto) Eos # (Auto) Baso # (Auto) PT INR APTT Sodium 138 Potassium 4.4 Chloride 103 Carbon Dioxide 28 Anion Gap 12 BUN 19 Creatinine 0.9 Est GFR ( Amer) > 60 Est GFR (Non-Af Amer) > 60 POC Glucose (mg/dL) Random Glucose 117 H Hemoglobin A1c 5.7 Calcium 9.6 Total Bilirubin 0.5 AST 39 ALT 23 Alkaline Phosphatase 78 Troponin I < 0.0120 Total Protein 7.5 Albumin 4.4 Globulin 3.2 Albumin/Globulin Ratio 1.4 Triglycerides 107 D Cholesterol 174 LDL Cholesterol Direct 103 HDL Cholesterol 60 Blood Type O POSITIVE Antibody Screen Negative Assessment & Plan - Date & Time Date: 09/10/18 (I have seen and examined the patient. I agree with the findings and plan of care as documented by Dr. Roe. Patient with weakness/numbess in extremity. Code stroke called in ED. History of neurocysticercosis. Consult to neuro. MRI brain. History of hypothyroidism. Continue home med. Monitor for acute changes.) Time: 06:28 Attending/Attestation - Attestation I have personally seen and examined this patient.: Yes I have fully participated in the care of the patient.: Yes I have reviewed all pertinent clinical information: Yes
[2018-09-10] MEDS ORDERED: Levothyroxine 75 MCG TAB PO SCH (06:30)
--- NOTE | 2018-09-10 08:13 | RAD ---
Chest x-ray single frontal view History: Code stroke. Comparison: None available. Findings: Mild venous congestion. Nodular density projecting over the left upper lung zone may represent confluence of shadows with ribs and vessels. Tortuous aorta. Top normal heart size. Degenerative changes in the spine. Impression: Mild venous congestion. Nodular density projecting over the left upper lung zone may represent confluence of shadows with ribs and vessels. Tortuous aorta.
[2018-09-10] MEDS ORDERED: Gadodiamide 287 MG/ML VIAL (15ML) IV ONE (09:34)
--- NOTE | 2018-09-10 10:08 | CP.PCM.PN ---
Subjective - Date & Time of Evaluation Date of Evaluation: 09/10/18 Time of Evaluation: 10:08 - Subjective Subjective: Progress note for Dr. Dickson. Patient seen and examined at bedside. Patient states he feels much better today. Reports most of his symptoms have resolved including L arm weakness and dizziness. He still admits to mild headache and some left arm numbness, tingling, and altered sensation to touch. He does state he has a new cough. He denies fever, chills, sweats, chest pain, palpitations, shortness of breath, pleuritic pain, loss of muscle strength. Objective - Vital Signs/Intake and Output Vital Signs (last 24 hours): Temp Pulse Resp BP Pulse Ox 97.7 F 66 20 125/72 97 09/10/18 07:40 09/10/18 07:40 09/10/18 07:40 09/10/18 07:40 09/10/18 07:40 - Medications Medications: Current Medications Aspirin (Aspirin Chewable) 81 mg PO DAILY [facility] Last Admin: 09/10/18 10:04 Dose: 81 mg Levothyroxine Sodium (Synthroid) 75 mcg PO DAILY@0630 [facility] Last Admin: 09/10/18 05:57 Dose: 75 mcg Rosuvastatin Calcium (Crestor) 20 mg PO HS [facility] Last Admin: 09/10/18 00:25 Dose: 20 mg - Labs Labs: 09/09/18 20:47 09/09/18 20:47 PT 11.9 SECONDS (9.7-12.2) 09/09/18 20:47 INR 1.1 09/09/18 20:47 APTT 32 SECONDS (21-34) 09/09/18 20:47 - Additional Findings Additional findings: GENERAL: No acute distress HEENT: Atraumatic normocephalic, EOMI, PERRLA, no nystagmus, mucous membranes moist, large midline thyroglossal duct cyst noted, non-tender CARDIO: Regular rate, + S1 and S2, no murmurs, rubs, gallops, no carotid bruits PULM: CTA bilaterally, no ronchi, rales wheezing or accessory muscle use GI: non-distended, nontender, bowel sounds x 4 quadrants, no guarding or rebound EXTREMITIES: peripheral pulses intact bilaterally, no edema, no calf tenderness, right 2nd toe missing from childhood injury, no skin changes NEURO: AAOx3, loss of sensation to light touch at medial epicondyle of left arm T1 dermatome otherwise sensation intact, cranial nerves 2-12 grossly intact, full active and passive ROM bilaterally UE and LE, Muscle strength +5/5 RUE and LE bilaterally, 4-5/5 LUE, +2/4 DTR's in upper and lower extremities bilaterally, + Spurlings test on the left Assessment and Plan - Assessment and Plan (Free Text) Plan: Patient is a 57 year old male with pmhx of cysticercosis, hypothyroidism, Hyperlipidemia and HTN, came to the ED for new onset numbness and weakness of left side of arm extending to left side of neck, face and head. Code stroke called in ED. CT Head, CTA head and neck shows Multiple scattered round calcifications within both cerebral hemisphere with no surrounding edema , pending official results, Neuro on board, pending brain MRI w and w/o contrast Left Upper ext weakness/numbness CODE stroke hx of cysticercosis, left parietal CVA (03/2018) - EKG - NSR - CXR - pending result - previous imagining - Head CT (04/24): multiple scattered round calcifications within both cerebral hemispheres. All calcifications are less than 4mm in diameter without edema. MRI (04/25): multiple lesions sub arachnoid, supretentorial calcifications consistent w/ neurocystercosi. - Head CT - prelim read - Multiple scattered round calcifications within both cerebral hemisphere with no surrounding edema, pending official read - Head and neck CTA - prelim read - unremarkable , pending official read - MRI brain W and W/O contrast - f/u results - ASA 325 PO given in ER - Continue ASA 81 mg PO QD - Neuro consulted: Dr. Hutchins - recs appreciated Hypothyroidism - last admission 03/2018 - TSH 8.3, T4 0.83 - f/u TSH, free t4 - Continue levothyroxine 75mcg PO QD Hyperlipidemia - last admission 03/2018 - TG 77 Chol 188 LD 104 HDL 69 - f/u lipid panel - continue Crestor 20mg PO QHS Hypertension - elevated Blood pressure in ED 151/82 - repeat bp at 137/84 - does not take medication - Monitor BP PPx - DVT: SCDS, hold AC until CT official results - GI: not indicated at this time - Diet: HHD 2g Na, low/fat low cholesterol
--- NOTE | 2018-09-10 10:42 | CT ---
Date of service: 09/09/2018 PROCEDURE: CT HEAD WITHOUT CONTRAST. HISTORY: Code Stroke COMPARISON: None available. TECHNIQUE: Axial computed tomography images were obtained through the head/brain without intravenous contrast. Radiation dose: Total exam DLP = 1056.4 mGy-cm. This CT exam was performed using one or more of the following dose reduction techniques: Automated exposure control, adjustment of the mA and/or kV according to patient size, and/or use of iterative reconstruction technique. FINDINGS: HEMORRHAGE: No intracranial hemorrhage. BRAIN: No mass effect or edema. Scattered small cortical calcifications in both cerebral hemispheres which is a nonspecific finding but the possibility of neurocysticercosis as well as TORCH syndrome or toxoplasmosis must also be considered. Overall not significantly changed since the prior study. VENTRICLES: Unremarkable. No hydrocephalus. CALVARIUM: Unremarkable. PARANASAL SINUSES: Unremarkable as visualized. No significant inflammatory changes. MASTOID AIR CELLS: Unremarkable as visualized. No inflammatory changes. OTHER FINDINGS: None. IMPRESSION: No acute intracranial abnormality. Scattered small cortical calcifications in both cerebral hemispheres which is a nonspecific finding but the possibility of neurocysticercosis as well as TORCH syndrome or toxoplasmosis must also be considered. Overall not significantly changed since the prior study. If symptoms persists, consider correlation with MRI. A preliminary report was generated at 8:56 p.m. on 09/09/[address] Eh Khanna from [employer].
--- NOTE | 2018-09-10 13:55 | MRI ---
Date of service: 09/10/2018 PROCEDURE: MRI BRAIN WITH AND WITHOUT CONTRAST HISTORY: Left upper ext weakness, history of neurocysticercosis COMPARISON: Made with prior CT scan of the brain and CTA brain both 09/09/2018. TECHNIQUE: Multiplanar, multisequence MR images of the brain were obtained with and without intravenous contrast enhancement. FINDINGS: HEMORRHAGE: No acute parenchymal, subarachnoid or extra-axial hemorrhage. No evidence of hemosiderin deposition identified on gradient echo weighted sequence. DWI: There are several tiny focal areas of of restricted diffusion in the cortical/subcortical white matter right superior frontal lobe near the the vertex consistent with tiny acute infarcts. BRAIN PARENCHYMA: Multiple tiny focal areas of dark T2 signal scattered about subarachnoid and/or cortical surfaces both cerebral hemispheres consistent with a neurocysticercosis are present though seen to better advantage on prior CT scan.. Additionally, there are several tiny focal areas of nonenhancing nonspecific increased T2 signal also seen scattered about the deep and subcortical white matter both cerebral hemispheres none of which appear to correspond to known scattered calcifications.. Note also made of curvilinear area of subcortical gliosis left posterior superior parietal region. None of these changes exhibit contrast enhancement. There is no evidence of abnormal meningeal enhancement. ENHANCEMENT: . Suspect small incidental venous angioma right D frontal white matter the level of the lateral ventricles. VENTRICLES: No obstructive hydrocephalus. CRANIUM: Unremarkable. ORBITS: Orbits and contents unremarkable PARANASAL SINUSES/MASTOIDS: Clear VASCULAR SYSTEM: Visualized major vascular flow voids at skull base patent. OTHER FINDINGS: None . IMPRESSION: There are tiny acute infarct changes in the cortical/subcortical white matter right superior frontal region. Scattered cortical surface and subarachnoid calcifications both cerebral hemispheres consistent with this patient's history of neurocysticercosis. There are also multiple tiny foci of nonenhancing prolonged T2 signal changes scattered about the deep and subcortical white matter both cerebral hemispheres as well as minimal chronic periventricular white matter ischemic changes. Note these findings were discussed with 6 sara Padron at approximately 1:45 p.m. with written down and read back verification.
--- NOTE | 2018-09-10 14:25 | CT ---
Date of service: 09/09/2018 PROCEDURE: CT Angiography of the neck and brain HISTORY: Code stroke COMPARISON: None. TECHNIQUE: Contiguous axial images of the neck and brain were obtained from the level of the vertex of the skull to the superior mediastinum in the arteriographic phase of enhancement. Coronal and sagittal reformats or also generated. IV contrast dose: 100 cc Visipaque 320 Radiation dose: Total exam DLP = 567.79 mGy-cm. This CT exam was performed using one or more of the following dose reduction techniques: Automated exposure control, adjustment of the mA and/or kV according to patient size, and/or use of iterative reconstruction technique. FINDINGS: The aortic arch widely patent with no significant atherosclerotic calcification. The right brachiocephalic and left common carotid artery arise from a common trunk. Origins of the great vessels otherwise unremarkable and widely patent. The common carotid arteries, carotid bifurcations internal carotid arteries including the petrous cavernous and supraclinoid segments patent. There is asymmetry of the A1 segments left-side of which is larger in caliber more dominant than the right-side.. There is a origin of the right posterior cerebral artery. Remaining visualized major branches of the [id number]-Gsvdxh unremarkable.. The distal branches of the anterior middle and posterior cerebral arteries are patent and relatively symmetric. No evidence of large aneurysm nor vascular malformation. VERTEBRAL ARTERIES: There is marked asymmetry of the vertebral arteries right-sided which is much larger in caliber/more dominant than the left side. Left vertebral artery is a relative straightening throughout commensurate with small transverse foramina. 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 The left vertebral artery appears to terminate in a left-sided posterior inferior cerebellar artery (PICA)... OTHER FINDINGS: There is a large rounded approximately 5.1 cm low-attenuation lesion in the anterior mid aspect of the neck which extends from the level of the hyoid inferiorly through the manubrium level consistent with a large thyroglossal duct cyst. IMPRESSION: There is a origin of the right posterior cerebral artery. Left vertebral artery is markedly small in caliber and terminates in a left-sided (PICA) felt to represent an anatomic variation. The remaining cervical and cerebral vascular unremarkable. Large thyroglossal duct cyst.
[2018-09-10] MEDS ORDERED: guaiFENesin DM 200 mg-20 mg/10 ml UD PO PRN (14:27)
[2018-09-10 16:20] VITALS: PULSE 69
--- NOTE | 2018-09-10 16:30 | RAD ---
Date of service: 09/10/2018 PROCEDURE: Cervical Spine Radiographs. HISTORY: Pain. COMPARISON: None available. TECHNIQUE: 3 views obtained. FINDINGS: BONES: Alignment maintained. No fracture. Dens Intact. DISC SPACES: Normal. SOFT TISSUES: Normal. No prevertebral soft tissue swelling. OTHER FINDINGS: None. IMPRESSION: Normal cervical spine radiographs
[2018-09-10 17:43] VITALS: BP 126/76; RESP 18; TEMP 98; O2SAT 98
--- NOTE | 2018-09-10 17:58 | CP.PCM.DIS ---
<Nava Kuhn P - Last Filed: 09/10/18 19:58> Provider - Provider Date of Admission: 09/09/18 22:50 Attending physician: New Peck MD Consults: 09/09/18 20:38 Stroke Team Consult Stat Comment: Consulting Provider: Neurohospitalist Consulting Physician: NEUROHOSP Neurohospitalist for Consult: Meng Fox Neurohospitalist for Consult: Cheyenne Hutchins Reason for Consult: Code stroke 09/10/18 00:06 Neurology Consult Routine Comment: Consulting Provider: Cheyenne Hutchins Consulting Physician: Cheyenne Hutchins Reason for Consult: Code stroke, left UE weakness, hx cysticercosis Time Spent in preparation of Discharge (in minutes): 35 Diagnosis - Discharge Diagnosis (1) Weakness of limb Status: Acute Hospital Course - Lab Results Lab Results: Most Recent Lab Values WBC 10.6 K/uL (4.8-10.8) 09/09/18 20:47 RBC 5.27 Mil/uL (4.40-5.90) 09/09/18 20:47 Hgb 14.3 g/dL (12.0-18.0) 09/09/18 20:47 Hct 42.6 % (35.0-51.0) 09/09/18 20:47 MCV 80.7 fL (80.0-94.0) D 09/09/18 20:47 MCH 27.2 pg (27.0-31.0) 09/09/18 20:47 MCHC 33.7 g/dL (33.0-37.0) 09/09/18 20:47 RDW 13.6 % (11.5-14.5) 09/09/18 20:47 Plt Count 214 K/uL (130-400) 09/09/18 20:47 MPV 9.4 fL (7.2-11.7) 09/09/18 20:47 Neut % (Auto) 56.2 % (50.0-75.0) 09/09/18 20:47 Lymph % (Auto) 30.4 % (20.0-40.0) 09/09/18 20:47 [place] % (Auto) 5.5 % (0.0-10.0) 09/09/18 20:47 Eos % (Auto) 7.4 % (0.0-4.0) H 09/09/18 20:47 Baso % (Auto) 0.5 % (0.0-2.0) 09/09/18 20:47 Neut # (Auto) 5.9 K/uL (1.8-7.0) 09/09/18 20:47 Lymph # (Auto) 3.2 K/uL (1.0-4.3) 09/09/18 20:47 [place] # (Auto) 0.6 K/uL (0.0-0.8) 09/09/18 20:47 Eos # (Auto) 0.8 K/uL (0.0-0.7) H 09/09/18 20:47 Baso # (Auto) 0.1 K/uL (0.0-0.2) 09/09/18 20:47 PT 11.9 SECONDS (9.7-12.2) 09/09/18 20:47 INR 1.1 09/09/18 20:47 APTT 32 SECONDS (21-34) 09/09/18 20:47 Sodium 138 mmol/L (132-148) 09/09/18 20:47 Potassium 4.4 mmol/L (3.6-5.2) 09/09/18 20:47 Chloride 103 mmol/L (98-107) 09/09/18 20:47 Carbon Dioxide 28 mmol/L (22-30) 09/09/18 20:47 Anion Gap 12 (10-20) 09/09/18 20:47 BUN 19 mg/dL (9-20) 09/09/18 20:47 Creatinine 0.9 mg/dL (0.8-1.5) 09/09/18 20:47 Est GFR ( Amer) > 60 09/09/18 20:47 Est GFR (Non-Af Amer) > 60 09/09/18 20:47 POC Glucose (mg/dL) 97 mg/dL (65-110) 09/10/18 17:03 Random Glucose 117 mg/dL (75-110) H 09/09/18 20:47 Hemoglobin A1c 5.7 % (4.2-6.5) 09/09/18 20:47 Calcium 9.6 mg/dl (8.6-10.4) 09/09/18 20:47 Total Bilirubin 0.5 mg/dL (0.2-1.3) 09/09/18 20:47 AST 39 U/L (17-59) 09/09/18 20:47 ALT 23 U/L (21-72) 09/09/18 20:47 Alkaline Phosphatase 78 U/L (38-126) 09/09/18 20:47 Troponin I < 0.0120 ng/mL (0.00-0.120) 09/09/18 20:47 Total Protein 7.5 g/dL (6.3-8.3) 09/09/18 20:47 Albumin 4.4 g/dL (3.5-5.0) 09/09/18 20:47 Globulin 3.2 gm/dL (2.2-3.9) 09/09/18 20:47 Albumin/Globulin Ratio 1.4 (1.0-2.1) 09/09/18 20:47 Triglycerides 107 mg/dL (0-149) D 09/09/18 20:47 Cholesterol 174 mg/dL (0-199) 09/09/18 20:47 LDL Cholesterol Direct 103 mg/dL (0-129) 09/09/18 20:47 HDL Cholesterol 60 mg/dL (30-70) 09/09/18 20:47 Blood Type O POSITIVE 09/09/18 20:47 Antibody Screen Negative 09/09/18 20:47 - Hospital Course Hospital Course: On admission: Patient is a 57 year old male with pmhx of neurocystercosis (diagnosed on last admission 03/2018), hypothyroidism, hypertension, hyperlipidemia that came to the ER for new complaints of weakness and tingling in left arm extending up to l eft side of face and back of head that started about 7:30pm while patient was sitting in his couch. Patient states he had a similar episode a few months ago, when he felt same symptoms in his right arm and right side of face and head. 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 Patient states this time he could not rise his left arm and was not able to keep arm still. Patient admits to feeling dizziness and sweating, and mild headaches, as well as bitter taste in his mouth. Patient denies weakness in lower extremities, falls or LOC. Denies vision or hearing loss, changes in speech or difficulty swallowing foods or liquids. Patient denies fever, chills, chest pain, sob, n/v/d/c or urinary symptoms. On Hospitalization: Patient was admitted For LUE weakness. Code stroke was called in the ED. Stroke scale was 2 on arrival to ED, (L arm weakness). Dr. Hutchins, neurology was consulted and requested the following imaging: - Head CT - prelim read - No acute intracranial abnormality. Scattered small cortical calcifications in both cerebral hemispheres which is a nonspecific finding but the possibility of neurocysticercosis as well as TORCH syndrome or toxoplasmosis must also be considered. Overall not significantly changed since the prior study. - Head and neck CTA - unremarkable, see full report -C spine Xray- WNL, see full report -Brain MRI 09/11/15: There are tiny acute infarct changes in the cortical/subcortical white matter right superior frontal region. Scattered cortical surface and subarachnoid calcifications both cerebral hemispheres consistent with this patient's history of neurocysticercosis. Previous imaging: - Head CT (04/24): multiple scattered round calcifications within both cerebral hemispheres. All calcifications are less than 4mm in diameter without edema. -MRI (04/25): There is a area of restricted diffusion left posterior superior parietal cortex consistent with an acute infarct. multiple lesions sub arachnoid, supretentorial calcifications consistent w/ neurocystercosi. The Brain MRI official read stated tiny acute infarct changed in the cortical/subcortical white matter right superior frontal region, however it is Dr. Hutchins's opinion that these tiny areas are not infarcts, but related to patient's hx of neurocysticercosis, as well as infarcts in the frontal lobe do not explain weakness in the L arm. In Dr. Hutchins's opinion patient's symptoms are not due to stroke. She recommended discharge on Aspirin. On Discharge: Patient is stable as per Dr. Dickson. Patient should continue his home medication: Aspirin 81mg daily, which patient has confirmed he has at home Crestor 20mg Daily Levothyroxine 75mcg daily Patient is to follow up with his primary care doctor at the [facility] in [facility] within one week of discharge. Return to the Emergency Room for new or worsening symptoms. Discharge Exam - Additional Findings Additional findings: GENERAL: No acute distress HEENT: Atraumatic normocephalic, EOMI, PERRLA, no nystagmus, mucous membranes moist, large midline thyroglossal duct cyst noted, non-tender CARDIO: Regular rate, + S1 and S2, no murmurs, rubs, gallops, no carotid bruits PULM: CTA bilaterally, no ronchi, rales wheezing or accessory muscle use GI: non-distended, nontender, bowel sounds x 4 quadrants, no guarding or rebound EXTREMITIES: peripheral pulses intact bilaterally, no edema, no calf tenderness, right 2nd toe missing from childhood injury, no skin changes NEURO: AAOx3, cranial nerves 2-12 intact, loss of sensation to light touch at medial epicondyle of left arm T1 dermatome otherwise sensation intact, full active and passive ROM bilaterally UE and LE, Muscle strength 5/5 RUE and LE bilaterally, 4-5/5 LUE, +2/4 DTR's in upper and lower extremities bilaterally, + Spurlings test on the left Discharge Plan - Discharge Medications Prescriptions: Levothyroxine [Synthroid] 75 mcg PO DAILY #30 tab Rosuvastatin Calcium [Crestor] 20 mg PO HS #30 tab - Follow Up Plan Condition: GOOD Disposition: HOME/ ROUTINE Instructions: Stroke (DC), Generalized Weakness (DC), Paresthesias (DC), High Cholesterol (DC) Additional Instructions: Patient is stable as per Dr. Dickson. Patient should continue his home medication: Aspirin 81mg daily, which patient has confirmed he has at home Crestor 20mg Daily Levothyroxine 75mcg daily Patient is to follow up with his primary care doctor at the [facility] in [facility] within one week of discharge. Return to the Emergency Room for new or worsening symptoms. El paciente est estable segn el Dr. Dickson. El paciente debe continuar irving medicacin casera: Aspirina 81mg al jhonathan Crestor 20 mg al da Levothyroxine 75 mcg al da El paciente debe hacer un seguimiento con irving mdico de atencin primaria en el [facility] en [facility] [address] dentro de morgan semana despus del jeana. Regrese a la macario de emergencias para los sntomas nuevos o que empeoran. <Rafia Dickson - Last Filed: 09/11/18 14:52> Provider - Provider Date of Admission: 09/09/18 22:50 Attending physician: New Peck MD Consults: 09/09/18 20:38 Stroke Team Consult Stat Comment: Consulting Provider: Neurohospitalist Consulting Physician: NEUROHOSP Neurohospitalist for Consult: Meng Fox Neurohospitalist for Consult: Cheyenne Hutchins Reason for Consult: Code stroke 09/10/18 00:06 Neurology Consult Routine Comment: Consulting Provider: Cheyenne Hutchins Consulting Physician: Cheyenne Hutchins Reason for Consult: Code stroke, left UE weakness, hx cysticercosis Hospital Course - Lab Results Lab Results: Most Recent Lab Values WBC 10.6 K/uL (4.8-10.8) 09/09/18 20:47 RBC 5.27 Mil/uL (4.40-5.90) 09/09/18 20:47 Hgb 14.3 g/dL (12.0-18.0) 09/09/18 20:47 Hct 42.6 % (35.0-51.0) 09/09/18 20:47 MCV 80.7 fL (80.0-94.0) D 09/09/18 20:47 MCH 27.2 pg (27.0-31.0) 09/09/18 20:47 MCHC 33.7 g/dL (33.0-37.0) 09/09/18 20:47 RDW 13.6 % (11.5-14.5) 09/09/18 20:47 Plt Count 214 K/uL (130-400) 09/09/18 20:47 MPV 9.4 fL (7.2-11.7) 09/09/18 20:47 Neut % (Auto) 56.2 % (50.0-75.0) 09/09/18 20:47 Lymph % (Auto) 30.4 % (20.0-40.0) 09/09/18 20:47 [place] % (Auto) 5.5 % (0.0-10.0) 09/09/18 20:47 Eos % (Auto) 7.4 % (0.0-4.0) H 09/09/18 20:47 Baso % (Auto) 0.5 % (0.0-2.0) 09/09/18 20:47 Neut # (Auto) 5.9 K/uL (1.8-7.0) 09/09/18 20:47 Lymph # (Auto) 3.2 K/uL (1.0-4.3) 09/09/18 20:47 [place] # (Auto) 0.6 K/uL (0.0-0.8) 09/09/18 20:47 Eos # (Auto) 0.8 K/uL (0.0-0.7) H 09/09/18 20:47 Baso # (Auto) 0.1 K/uL (0.0-0.2) 09/09/18 20:47 PT 11.9 SECONDS (9.7-12.2) 09/09/18 20:47 INR 1.1 09/09/18 20:47 APTT 32 SECONDS (21-34) 09/09/18 20:47 Sodium 138 mmol/L (132-148) 09/09/18 20:47 Potassium 4.4 mmol/L (3.6-5.2) 09/09/18 20:47 Chloride 103 mmol/L (98-107) 09/09/18 20:47 Carbon Dioxide 28 mmol/L (22-30) 09/09/18 20:47 Anion Gap 12 (10-20) 09/09/18 20:47 BUN 19 mg/dL (9-20) 09/09/18 20:47 Creatinine 0.9 mg/dL (0.8-1.5) 09/09/18 20:47 Est GFR ( Amer) > 60 09/09/18 20:47 Est GFR (Non-Af Amer) > 60 09/09/18 20:47 POC Glucose (mg/dL) 97 mg/dL (65-110) 09/10/18 17:03 Random Glucose 117 mg/dL (75-110) H 09/09/18 20:47 Hemoglobin A1c 5.7 % (4.2-6.5) 09/09/18 20:47 Calcium 9.6 mg/dl (8.6-10.4) 09/09/18 20:47 Total Bilirubin 0.5 mg/dL (0.2-1.3) 09/09/18 20:47 AST 39 U/L (17-59) 09/09/18 20:47 ALT 23 U/L (21-72) 09/09/18 20:47 Alkaline Phosphatase 78 U/L (38-126) 09/09/18 20:47 Troponin I < 0.0120 ng/mL (0.00-0.120) 09/09/18 20:47 Total Protein 7.5 g/dL (6.3-8.3) 09/09/18 20:47 Albumin 4.4 g/dL (3.5-5.0) 09/09/18 20:47 Globulin 3.2 gm/dL (2.2-3.9) 09/09/18 20:47 Albumin/Globulin Ratio 1.4 (1.0-2.1) 09/09/18 20:47 Triglycerides 107 mg/dL (0-149) D 09/09/18 20:47 Cholesterol 174 mg/dL (0-199) 09/09/18 20:47 LDL Cholesterol Direct 103 mg/dL (0-129) 09/09/18 20:47 HDL Cholesterol 60 mg/dL (30-70) 09/09/18 20:47 Blood Type O POSITIVE 09/09/18 20:47 Antibody Screen Negative 09/09/18 20:47 Attending/Attestation - Attestation I have personally seen and examined this patient.: Yes I have fully participated in the care of the patient.: Yes I have reviewed all pertinent clinical information, including history, physical exam and plan: Yes
--- NOTE | 2018-09-10 22:00 | CP.PCM.CON ---
History of Present Illness - History of Present Illness History of Present Illness: Neurology consult dictated. Mr. Laurel Sommer is well known to our service from several months ago when he developed and was diagnosed with neurocysticercosis. He comes in on this admission, found to have an acute left arm weakness, that was foudn to be a small ischemic stroke on MRI. CTA head was normal. and he just obtained ECHO. PLan; 1. Deficits resolved, tia. 2. May be discharged home with treatment of thyroglossal duct. DR. guzman NEurology Past Patient History - Past Social History Smoking Status: Former Smoker - CARDIAC Hx Hypercholesterolemia: Yes Hx Hypertension: Yes - ENDOCRINE/METABOLIC Hx Hypothyroidism: Yes - MUSCULOSKELETAL/RHEUMATOLOGICAL Hx Falls: No - PSYCHIATRIC Hx Substance Use: No - SURGICAL HISTORY Hx Surgeries: No - ANESTHESIA Hx Anesthesia: No Meds Home Medications: Home Medication List Medication Instructions Recorded Confirmed Type Levothyroxine [Synthroid] 75 mcg PO DAILY #30 tab 09/10/18 Rx Rosuvastatin Calcium [Crestor] 20 mg PO HS #30 tab 09/10/18 Rx Allergies/Adverse Reactions: Allergies Allergy/AdvReac Type Severity Reaction Status Date / Time egg Allergy RASH Verified 09/10/18 07:54 shellfish derived Allergy RASH Verified 09/10/18 07:54 shrimp Allergy RASH Verified 09/10/18 07:54 wheat Allergy RASH Verified 09/10/18 07:54 Results - Vital Signs Recent Vital Signs: Last Vital Signs Temp 98 F 09/10/18 15:42 Pulse 69 09/10/18 16:00 Resp 18 09/10/18 15:42 BP 126/76 09/10/18 15:42 Pulse Ox 98 09/10/18 15:42 - Labs Result Diagrams: 09/09/18 20:47 09/09/18 20:47 Labs: Laboratory Results - last 24 hr 09/10/18 09/10/18 06:27 17:03 POC Glucose (mg/dL) 88 97
--- NOTE | 2018-09-13 15:39 | CARD ---
APPROVED REPORT Date of service: 09/09/2018 EKG Measurement Heart [id number] <Conclusion> Normal sinus rhythm Normal ECG
== END 2018-09-10 19:00 | disposition home or self-care (01) ==
LOC: C.ER 19:54 → C.6T 22:50
PROVIDERS: ADMIT Family Medicine; ATTEND Family Medicine
DX: R53.1 Weakness (principal); B69.0 Cysticercosis of central nervous system; I10 Essential (primary) hypertension; E78.5 Hyperlipidemia, unspecified; E03.9 Hypothyroidism, unspecified; E78.00 Pure hypercholesterolemia, unspecified; Z79.82 Long term (current) use of aspirin; Z79.890 Hormone replacement therapy; Z86.73 Personal history of transient ischemic attack (TIA), and cerebral infarction without residual deficits; Z87.891 Personal history of nicotine dependence
CPT/HCPCS: 70450; 70496; 70498; 70553; 71045; 72052; 80053; 80061; 82948; 83036; 84484; 85025; 85610; 85730; 86850; 86900; 99285; A9579; G0378; Q9967